=== PATIENT | female | born 1985 | race Caucasian/White ===

== ENCOUNTER 2020-09-13 13:09 | Outpatient (REF) | payer MEDICAID, SELFPAY | END 2020-09-13 13:10 | disposition home or self-care (01) | LOC: HO.LAB 13:09 | PROVIDERS: Visit Provider Internal Medicine | DX: Z20.828 Contact with and (suspected) exposure to other viral communicable diseases (principal) | CPT/HCPCS: C9803; U0003 ==

== ENCOUNTER 2020-12-26 09:13 | Outpatient (REF) | payer MEDICAID, SELFPAY | END 2020-12-26 09:14 | disposition home or self-care (01) | LOC: HO.LAB 09:13 | PROVIDERS: Visit Provider Internal Medicine | DX: Z20.822 Contact with and (suspected) exposure to COVID-19 (principal) | CPT/HCPCS: 36415; C9803; U0003; U0005 ==

== ENCOUNTER 2021-01-24 08:28 | Outpatient (REF) | payer MEDICAID, SELFPAY ==
[2021-01-24 13:31] LABS: SARS COV2 PCR INHOUSE NEGATIVE (Negative)
== END 2021-01-24 08:29 | disposition home or self-care (01) ==
LOC: HO.LAB 08:28
PROVIDERS: Visit Provider Internal Medicine
DX: Z20.822 Contact with and (suspected) exposure to COVID-19 (principal)
CPT/HCPCS: C9803; U0003

== ENCOUNTER 2021-06-13 07:39 | Emergency (ER) | payer MEDICAID, SELFPAY ==
--- NOTE | ~2021-06-13 | US_ITS ---
EXAMINATION: ULTRASOUND EXTREMITY NONVASCULAR. CLINICAL INFORMATION: Question Wilkins's cyst. COMPARISON: None TECHNIQUE: Limited imaging through the right parieto-occipital fossa was performed. FINDINGS: There is no evidence of Wilkins's cyst or soft tissue mass or aneurysm. There is nonspecific minimal fluid along the medial aspect of the popliteal fossa. US/US extremity nonvascular IMPRESSION: There is no Wilkins's cyst seen. There is minimal fluid in the medial aspect of the upper fossa.
--- NOTE | ~2021-06-13 | XR_ITS ---
EXAMINATION: XR KNEE, RIGHT CLINICAL INFORMATION: Right posterior knee pain after exercising. COMPARISON: None TECHNIQUE: Four views of the right knee. FINDINGS: Possible mild soft tissue fullness posterior to the right knee. No significant tricompartmental degenerative joint changes are seen. No acute fracture dislocation. The soft tissues are unremarkable. XR/XR knee RT 4V IMPRESSION: Soft tissue swelling posteriorly. A popliteal cyst cannot be excluded. Targeted soft tissue ultrasound could be performed.
[2021-06-13 07:57] VITALS: BP 102/64; PULSE 78; RESP 18; TEMP 37; O2SAT 98
[2021-06-13 08:03] VITALS: BP 102/64; BP 118/64; PULSE 78; PULSE 96; RESP 18; TEMP 37; O2SAT 95; O2SAT 98; BMI 27.4
[2021-06-13] MEDS: predniSONE 20 MG TABLET 40 MG PO (09:25)
--- NOTE | 2021-06-13 09:25 | ED_ITS ---
HPI - Extremity Injury (Lower) General Chief Complaint: Extremity Injury, Lower Stated Complaint: leg pain Time Seen by Provider: 06/13/21 08:12 Source: patient Mode of arrival: ambulatory Limitations: no limitations History of Present Illness complaint: thigh injury and knee injury Onset (ago): day(s) (Two days ago) Injury: Right: thigh and knee Type of Injury: hyperextension Place: home Severity: moderate Exacerbating factors: weight bearing, movement and palpation Context: other (Exercising pulling on her leg up to her chest) Associated symptoms: snap/pop sensation and able to partially bear weight Other symptoms: none Treatments prior to arrival: other (Has tried Motrin and Tylenol no symptomatic relief) Related Data Previous Rx's Medication Instructions Recorded acetaminophen 500 mg tablet 1,000 mg PO QID PRN #14 tab 06/13/21 (Tylenol Extra Strength) cyclobenzaprine 10 mg tablet 10 mg PO Q8H #10 tab 06/13/21 ibuprofen 800 mg tablet 800 mg PO Q8H PRN #14 tab 06/13/21 oxycodone-acetaminophen 5 mg-325 1 tab PO Q6H PRN #10 tab 06/13/21 mg tablet (Percocet) prednisone 20 mg tablet 40 mg PO DAILY 5 Days #10 tab 06/13/21 Allergies Allergy/AdvReac Type Severity Reaction Status Date / Time Penicillins [PCN] Allergy Severe ANAPHYLAXIS Unverified 07/07/20 19:29 Review of Systems Review of Systems: Constitutional : No changes in activity, No lethargy, No recent prior head injury, No agitation, No increased fussiness ENT/Mouth : No Ear Pain, No Nasal discharge/drainage Eyes: No Eye Pain, No Swelling, No Redness, No Foreign Body, No Vision Changes Cardiovascular : No Chest Pain, No SOB Respiratory : No Cough Gastrointestinal : No Nausea, No Vomiting, No abdominal Pain Genitourinary : No Dysuria, No Urinary Frequency, No Urinary Incontinence, No Urgency, No Flank Pain Musculoskeletal : + joint pain, No neck stiffness, No back pain/injury Skin : No lacerations Neuro : No unsteady gait, No Paresthesias, No Loss of Consciousness, No altered mental status, No Headache Yes all other systems are reviewed and are negative [facility] Past Medical History Attestation statement: The following information was validated with the patient. Medical History Asthma Surgical History H/O tubal ligation Social History Social History Alcohol intake: never Patient Tobacco Use Status: Never used Tobacco Use of substances other than those prescribed or required for medical reasons: No Advance Directives: No Advance Directives Information Provided: No Patient : No Physical Exam Vital Signs: Vital Signs: Last Vital Signs Temp 98.2 F 06/13/21 10:48 Pulse 80 06/13/21 10:48 Resp 18 06/13/21 10:48 BP 103/55 L 06/13/21 10:48 Pulse Ox 100 06/13/21 10:48 Body Mass Index 27.4 vital signs have been reviewed as normal and appeared to be correct. Blood pressure normal. Heart rate normal. Respiration rate normal. Temperature normal. Oxygen saturation normal. Appearance: Alert. Oriented X3. No acute distress. Head: Normal external exam. Normocephalic. Atraumatic. No Jacques signs noted. No raccoon eyes noted Eyes: PERRLA. EOMI. Conjunctiva and sclera normal. Eyelids normal. ENT: EAC normal. TM's Normal. Pharynx normal. Uvula midline. Moist mucous membranes. No trismus noted. No drooling noted. No muffled voice noted. Neck: Normal inspection. Neck supple. FROM. No adenopathy. Thyroid Normal. No meningeal signs. No neck mass noted. CVS: Normal heart rate and rhythm. Heart sound normal. Pulses normal throughout. No murmurs/rales/gallops. Respiratory: No respiratory distress. Painless inspiration. Breath sounds normal. No wheezes/rales/rhonchi noted. Chest nontender. No accessory muscle usage noted or decreased air movement noted. Abdomen: Soft and nontender. Bowel sounds normal in all 4 quadrants. No distention noted. No organomegaly noted. No visible injury noted. Back: No CVA tenderness. Full range of motion noted. No rashes/lesion/induration/fluctuance or signs of infection noted. Skin: Skin warm and dry. Normal skin color. Normal skin turgor. No rashes/lesions/lacerations noted. Extremities: Patient with tenderness palpation to right posterior knee/distal thigh at the posterior aspect. Patient has full range of motion of the right knee no ligamentous laxity is noted. No obvious deformities noted. No calf tenderness is noted. No lower extremity edema. Extremities exhibit normal range of motion. Extremities nontender. Neuro: Oriented X 3. No motor deficit. No sensory deficit. Reflexes normal. Normal steady gait. No focal neuro deficits noted. Vascular: + radial pulses/+ 2 distal pedal pulses/+2 dorsalis pedis b/l. Normal cap refill. No cyanosis noted to upper extremity nails and lower extremity toes nails. Course Course Course Narrative: 35-year-old female presenting to the ED with complaints of right posterior knee/lower thigh pain. On exam patient has tenderness palpation to right posterior knee/distal thigh. No lower extremity edema or calf tenderness is noted. Not consistent with DVT. X-ray obtained and negative for any acute processes. Ultrasound obtained and revealed fluid in the posterior knee otherwise no other acute processes. Will DC home with symptomatic treatment along with instructions to return if any new or worsening symptoms to follow up with primary care provider. Patient understands agrees with this plan. MDM - Extremity Injury (Lower) Medical Records Attestation: I reviewed the patient's medical records. Imaging Data Right knee x-ray: Attestation: I personally reviewed and interpreted this imaging study as follows: Radiologist's impression: FINDINGS: Possible mild soft tissue fullness posterior to the right knee. No significant tricompartmental degenerative joint changes are seen. No acute fracture dislocation. The soft tissues are unremarkable. XR/XR knee RT 4V IMPRESSION: Soft tissue swelling posteriorly. A popliteal cyst cannot be excluded. Targeted soft tissue ultrasound could be performed. Soft tissue nonvascular extremity ultrasound: Attestation: I personally reviewed and interpreted this imaging study as follows: Radiologist's impression: FINDINGS: There is no evidence of Wilkins's cyst or soft tissue mass or aneurysm. There is nonspecific minimal fluid along the medial aspect of the popliteal fossa. ? US/US extremity nonvascular IMPRESSION: There is no Wilkins's cyst seen. There is minimal fluid in the medial aspect of the upper fossa.? Discharge Plan Discharge Clinical Impression: Muscle strain of right knee, Muscle strain of right thigh Patient Disposition: Home, Self-Care Instructions: Muscle Strain (ED) Prescriptions: New ibuprofen 800 mg tablet 800 mg PO Q8H PRN (Reason: pain) Qty: 14 RF: 0 prednisone 20 mg tablet 40 mg PO DAILY 5 Days Qty: 10 RF: 0 acetaminophen [Tylenol Extra Strength] 500 mg tablet 1,000 mg PO QID PRN (Reason: fever or pain) Qty: 14 RF: 0 oxycodone-acetaminophen [Percocet] 5-325 mg tablet 1 tab PO Q6H PRN (Reason: pain) Qty: 10 RF: 0 cyclobenzaprine 10 mg tablet 10 mg PO Q8H Qty: 10 RF: 0 Referrals: [facility] [Primary Care Provider] - 2 days Print Language: French
[2021-06-13] MEDS: Cyclobenzaprine HCl 10 MG TABLET PO (09:26)
[2021-06-13] MEDS: Ibuprofen 600 MG TABLET PO (09:26)
[2021-06-13 10:48] VITALS: BP 103/55; PULSE 80; RESP 18; TEMP 36.8; O2SAT 100
== END 2021-06-13 11:26 | disposition home or self-care (01) ==
PROVIDERS: Emergency Provider Emergency Medicine
DX: S86.111A Strain of other muscle(s) and tendon(s) of posterior muscle group at lower leg level, right leg, initial encounter (principal); S76.311A Strain of muscle, fascia and tendon of the posterior muscle group at thigh level, right thigh, initial encounter; X50.1XXA Overexertion from prolonged static or awkward postures, initial encounter; M79.604 Pain in right leg; Y93.B9 Activity, other involving muscle strengthening exercises; Y92.9 Unspecified place or not applicable; Y99.9 Unspecified external cause status
CPT/HCPCS: 73564; 76882; 99284

== ENCOUNTER 2021-08-07 08:11 | Emergency (ER) | payer MEDICAID, SELFPAY ==
--- NOTE | ~2021-08-07 | XR_ITS ---
EXAMINATION: CR X-RAY LEFT FOOT AND ANKLE CLINICAL INFORMATION: Left foot and ankle pain status post trauma/fall. COMPARISON: None TECHNIQUE: 3 views each of the left foot and ankle were obtained. FINDINGS: The ankle joint and mortise are intact. There is no acute fracture or dislocation. The tarsal bones are normally aligned. The metatarsals are intact. Small to moderate calcifications are seen along the medial margin of the first metatarsophalangeal joint. The joint space is unremarkable with normal alignment. The phalanges are intact. There is mild soft tissue swelling. XR/XR ankle LT min 3V IMPRESSION: Mild soft tissue swelling without acute underlying osseous abnormality. Calcifications medially adjacent to the first metatarsophalangeal joint are nonspecific and could be degenerative/chronic posttraumatic in nature. Nonacute gout is a secondary possibility. Correlate with patient history.
--- NOTE | ~2021-08-07 | XR_ITS ---
EXAMINATION: CR X-RAY LEFT FOOT AND ANKLE CLINICAL INFORMATION: Left foot and ankle pain status post trauma/fall. COMPARISON: None TECHNIQUE: 3 views each of the left foot and ankle were obtained. FINDINGS: The ankle joint and mortise are intact. There is no acute fracture or dislocation. The tarsal bones are normally aligned. The metatarsals are intact. Small to moderate calcifications are seen along the medial margin of the first metatarsophalangeal joint. The joint space is unremarkable with normal alignment. The phalanges are intact. There is mild soft tissue swelling. XR/XR foot LT min 3V IMPRESSION: Mild soft tissue swelling without acute underlying osseous abnormality. Calcifications medially adjacent to the first metatarsophalangeal joint are nonspecific and could be degenerative/chronic posttraumatic in nature. Nonacute gout is a secondary possibility. Correlate with patient history.
[2021-08-07 08:15] VITALS: BP 106/51; BP 130/70; PULSE 76; PULSE 89; RESP 16; TEMP 36.7; O2SAT 98; O2SAT 99; BMI 25.7
--- NOTE | 2021-08-07 08:48 | ED.LOWEXIN ---
HPI - Extremity Injury (Lower) General Chief Complaint: Extremity Injury, Lower Stated Complaint: L FOOT PAIN/INJURY S/P MISSTEP Time Seen by Provider: 08/07/21 08:22 Source: patient Mode of arrival: ambulatory Limitations: no limitations History of Present Illness HPI Narrative: 35-year-old female presents for left foot pain after 1 week ago. Patient states she was in sandals and walking downstairs, and she slipped and her left great toe bent backwards. Since then she has had worsening pain, states the pain is now 9/10 and she cannot bear weight. Pain is mostly in the joints of her right great toe. Skin is very tender Related Data Previous Rx's Medication Instructions Recorded acetaminophen 500 mg tablet 1,000 mg PO QID PRN #14 tab 06/13/21 (Tylenol Extra Strength) cyclobenzaprine 10 mg tablet 10 mg PO Q8H #10 tab 06/13/21 ibuprofen 800 mg tablet 800 mg PO Q8H PRN #14 tab 06/13/21 oxycodone-acetaminophen 5 mg-325 1 tab PO Q6H PRN #10 tab 06/13/21 mg tablet (Percocet) prednisone 20 mg tablet 40 mg PO DAILY 5 Days #10 tab 06/13/21 prednisone 10 mg tablet 10 mg PO DAILY 12 Days #39 tab 08/07/21 Allergies Allergy/AdvReac Type Severity Reaction Status Date / Time Penicillins [PCN] Allergy Severe ANAPHYLAXIS Unverified 07/07/20 19:29 latex Allergy Anaphylaxis Verified 08/07/21 08:22 Review of Systems Review of Systems: Constitutional : No Weight loss, No Fever, No Chills, No Night Sweats,No Fatigue, No Malaise ENT/Mouth : No Hearing loss, No Ear Pain, No Nasal Congestion, NoSinus Pain, No Hoarseness, No sore throat, No Rhinorrhea, NoSwallowing Difficulty Eyes: No Eye Pain, No Swelling, No Redness, No Foreign Body, NoDischarge, No Vision Changes Cardiovascular : No Chest Pain, No SOB, No Dyspnea on Exertion, NoOrthopnea, No Edema, No Palpitations Respiratory : No Cough, No Sputum, No Wheezing, No Smoke Exposure, No Dyspnea Gastrointestinal : No Nausea, No Vomiting, No Diarrhea, NoConstipation, No abdominal Pain, No Hematochezia, No Melena Musculoskeletal : left foot pain Skin : No Skin Lesions, No rash Neuro : No Weakness, No Numbness, No Paresthesias, No Loss ofConsciousness, No Dizziness, No Headache PMFSH Past Medical History Medical History Asthma Surgical History H/O tubal ligation Social History Social History Alcohol intake: never Patient Tobacco Use Status: Never used Tobacco Advance Directives: No Advance Directives Information Provided: No Patient : No Physical Exam Vital Signs: Vital Signs: Last Vital Signs Temp 98.0 F 08/07/21 08:15 Pulse 76 08/07/21 08:15 Resp 16 08/07/21 08:15 BP 106/51 L 08/07/21 08:15 Pulse Ox 99 08/07/21 08:15 Body Mass Index 25.7 Const: General: cooperative, no acute distress, well developed, alert and awake Nutritional Appearance: well nourished Orientation/consciousness: patient oriented x3 Limitations: no limitations HENMT: Head: Yes normal to inspection, Yes normocephalic and Yes atraumatic Ears: hearing grossly normal bilaterally, external ears normal, TM's normal bilaterally and EAC's normal General nose exam: Normal external nose present Face and sinus: Yes normal facial exam and Yes sinuses nontender Mouth: Normal oral and palatal mucosa present Throat: Yes posterior oropharynx normal Eyes: Conjunctivae: conjunctivae normal Pupils: Equal, round and reactive pupils present EOM: EOMs intact bilaterally Neck: Neck: Yes full ROM, Yes no lymphadenopathy and Yes supple Resp: Effort & Inspection: normal respiratory effort and able to speak in complete sentences Auscultation: clear to auscultation bilaterally, no crackles, no rales, no rhonchi and no wheezes Cardio: Rate: regular rate Rhythm: regular rhythm Heart sounds: S1 normal heart sound present and S2 normal heart sound present Skin: Other: Mildly erythematous and warm over dorsum of left foot Neuro: General: patient oriented x3, tone normal and moves all extremities Cranial nerves: Yes Equal, round and reactive pupils present Extrem: Left lower extremity: full ROM, normal capillary refill and foot Details: normal capillary refill and tenderness Location: of the great toe Location: at the MTP joint and of the mid foot Location: dorsally and distally; No no cyanosis and no edema Psych: Appearance: grossly normal Affect: normal affect Attitude: cooperative Thought process: Normal thought process present Course Course Course Narrative: 35-year-old female presents for left foot pain. On exam, patient has intact left lower extremity pulses, sensation, and motor strength. Patient is very tender over great toe MTP joint. Left foot diffusely swollen, skin extremely tender to palpate. X-ray shows no acute osseous abnormality, question gout MTP joint Will treat for gout Discharge Plan Discharge Clinical Impression: Gout Qualifiers: Gout site: foot Gout etiology: unspecified cause Chronicity: acute Laterality: left Qualified Code(s): M10.9 - Gout, unspecified Patient Disposition: Home, Self-Care Instructions: Gout (ED), R.I.C.E. Treatment (ED) Additional Instructions: Please rest, ice, and elevate your foot. Please take prednisone as prescribed. Please take the prednisone for 12 days. Please take it in the morning. Use the crutch you have at home, and weight bear as you can tolerate. Please return if you have worsening pain, or any other new or concerning symptoms. Prescriptions: New prednisone 10 mg tablet 10 mg PO DAILY 12 Days Qty: 39 RF: 0 No Action ibuprofen 800 mg tablet 800 mg PO Q8H PRN (Reason: pain) Qty: 14 RF: 0 prednisone 20 mg tablet 40 mg PO DAILY 5 Days Qty: 10 RF: 0 acetaminophen [Tylenol Extra Strength] 500 mg tablet 1,000 mg PO QID PRN (Reason: fever or pain) Qty: 14 RF: 0 oxycodone-acetaminophen [Percocet] 5-325 mg tablet 1 tab PO Q6H PRN (Reason: pain) Qty: 10 RF: 0 cyclobenzaprine 10 mg tablet 10 mg PO Q8H Qty: 10 RF: 0 Stand Alone Forms: Work/School Release
[2021-08-07] MEDS: oxyCODONE HCl Immed Release 5 MG TABLET PO (09:15)
== END 2021-08-07 11:44 | disposition home or self-care (01) ==
PROVIDERS: Emergency Provider Student in an Organized Health Care Education/Training Program; PCP Internal Medicine
DX: M10.9 Gout, unspecified (principal); M25.572 Pain in left ankle and joints of left foot; Z79.899 Other long term (current) drug therapy
CPT/HCPCS: 73610; 73630; 99283; 99284

== ENCOUNTER 2021-08-25 13:05 | Outpatient (REF) | payer MEDICAID, SELFPAY | END 2021-08-25 13:06 | disposition home or self-care (01) | LOC: HO.LAB 13:05 | PROVIDERS: Visit Provider Internal Medicine | DX: Z20.822 Contact with and (suspected) exposure to COVID-19 (principal) | CPT/HCPCS: C9803; U0003; U0005 ==

== ENCOUNTER 2021-10-06 08:33 | Emergency (ER) | payer MEDICAID, SELFPAY ==
--- NOTE | ~2021-10-06 | XR_ITS ---
EXAMINATION: XR CHEST CLINICAL INFORMATION: Shortness of breath and cough. Covid infection. COMPARISON: Previous chest x-ray February 2018 TECHNIQUE: Frontal view of the chest was obtained. FINDINGS: No significant abnormality is noted involving the heart, lungs, mediastinum, bony thorax or soft tissues. XR/XR chest 1V IMPRESSION: Unremarkable examination.
[2021-10-06 08:56] VITALS: BP 99/60; PULSE 91; RESP 17; TEMP 37.1; O2SAT 98
[2021-10-06 09:32] LABS: COVID-19 Test Positive (Negative)
[2021-10-06 09:37] LABS: Strep A Nucleic Acid Negative (Negative)
--- NOTE | 2021-10-06 09:53 | ED_ITS ---
HPI - General Adult General Chief complaint: General Medical Stated complaint: Sore throat/headache/fever Time Seen by Provider: 10/06/21 09:11 Source: patient Mode of arrival: ambulatory History of Present Illness HPI narrative: 35-year-old female with a past medical history of asthma presenting to the ED complaining productive cough, mild SOB, chest discomfort when coughing, myalgias, subjective fever, ear pain, sore throat x3 days. R eports sick contacts with strep pharyngitis and URI. Denies recent travel, pedal edema. Is COVID-19 vaccinated Onset (ago): day(s) Related Data Previous Rx's Medication Instructions Recorded acetaminophen 500 mg tablet 1,000 mg PO QID PRN #14 tab 06/13/21 (Tylenol Extra Strength) cyclobenzaprine 10 mg tablet 10 mg PO Q8H #10 tab 06/13/21 ibuprofen 800 mg tablet 800 mg PO Q8H PRN #14 tab 06/13/21 oxycodone-acetaminophen 5 mg-325 1 tab PO Q6H PRN #10 tab 06/13/21 mg tablet (Percocet) prednisone 20 mg tablet 40 mg PO DAILY 5 Days #10 tab 06/13/21 prednisone 10 mg tablet 10 mg PO DAILY 12 Days #39 tab 08/07/21 Allergies Allergy/AdvReac Type Severity Reaction Status Date / Time Penicillins [PCN] Allergy Severe ANAPHYLAXIS Verified 10/06/21 08:58 latex Allergy Anaphylaxis Verified 08/07/21 08:22 Review of Systems Review of Systems: Constitutional:+subj Fever, No Chills ENT/Mouth: + Ear Pain, + Nasal Congestion, No Sinus Pain, No Hoarseness, + sore throat, No Rhinorrhea, No Swallowing Difficulty Cardiovascular: + Chest Pain when coughing, + SOB Respiratory: + Cough, No Sputum, No Wheezing Gastrointestinal: No Nausea, No Vomiting, No Diarrhea, No Constipation, No Abdominal pain Genitourinary: No Dysuria, No Urinary Frequency, No Hematuria, No Urinary Incontinence Musculoskeletal: No joint pain, No Myalgias, No Joint Swelling Skin: No Skin Lesions, No rash Neuro: No Weakness Yes all other systems are reviewed and are negative PMFSH Past Medical History Attestation statement: The following information was validated with the patient. Medical History Asthma Surgical History H/O tubal ligation Social History Social History Alcohol intake: never Patient Tobacco Use Status: Never used Tobacco Advance Directives: No Advance Directives Information Provided: No Patient : No Physical Exam Vital Signs: Vital Signs: Last Vital Signs Temp 98.7 F 10/06/21 08:56 Pulse 91 10/06/21 08:56 Resp 17 10/06/21 08:56 BP 99/60 10/06/21 08:56 Pulse Ox 98 10/06/21 08:56 BMI result Body Mass Index 30.0 Const: General: cooperative, healthy appearing and no acute distress Orientation/consciousness: patient oriented x3 Limitations: no limitations HENMT: Head: Yes normal to inspection Ears: hearing grossly normal bilaterally, external ears normal, TM's normal bilaterally and mastoids normal General nose exam: Normal external nose present Face and sinus: Yes normal facial exam Mouth: Normal oral and palatal mucosa present Throat: Yes posterior oropharynx normal, Yes tonsils normal, Yes uvula midline, No peritonsillar mass and No uvular edema Eyes: General: appearance normal, both eyes and all related structures EOM: EOMs intact bilaterally Neck: Neck: Yes normal visual inspection and Yes no meningeal signs Resp: Effort & Inspection: normal respiratory effort Auscultation: clear to auscultation bilaterally, no rales, no rhonchi and no wheezes Cardio: Rate: regular rate Heart sounds: S1 normal heart sound present and S2 normal heart sound present Skin: Rashes: no rashes Wounds: no wounds Neuro: General: patient oriented x3 and no meningeal signs Gait exam (Neuro): Normal gait present Extrem: General: Yes normal to inspection, Yes no pedal edema and Yes no calf tenderness Course Course Course Narrative: -COVID-19 positive. Rapid strep negative. -1210--XR chest 1V IMPRESSION: Unremarkable examination. ? > results discussed with patient including worrisome signs and symptoms and strict return precautions Medical Decision Making MDM Narrative Medical decision making narrative: 35-year-old female with a past medical hi story of asthma presenting to the ED complaining productive cough, mild SOB, chest discomfort when coughing, myalgias, subjective fever, ear pain, sore throat x3 days. On exam vital signs stable, NAD/nontoxic, lungs CTA, exam nonfocal. Concern for viral syndrome/COVID-19. Exam not consistent with strep pharyngitis at this time. Will obtain rapid strep, COVID-19 testing, CXR Medical Records Medical records reviewed: Yes I reviewed the patient's medical records. Lab Data Lab results reviewed: Yes I reviewed the patient's lab results. Labs: Lab Results 10/06/21 10/06/21 Range/Units 09:16 09:16 COVID-19 ([facility]) Positive A (Negative) COVID-19 Clin Com See Note S. pyogenes GrpA AUDIE Negative (Negative) Discharge Plan Discharge Clinical Impression: COVID-19 Patient Disposition: Home, Self-Care Instructions: COVID-19 (Coronavirus Disease 2019) (ED) Additional Instructions: You have COVID-19. You need to self isolate for 10-14 days. If you develop shortness of breath that is constant worsening, chest pain, fevers unresolved with Tylenol or Motrin please return to the ED CDC Guidelines for home isolation: - Stay away from others - WEAR A MASK if you are sick AND STAY HOME - Cover your mouth and nose with a tissue when you cough or sneeze. Dispose of tissues in a lined trash can and wash your hands immediately with soap and water for at least 20 seconds. If soap and water are not available, clean hands with alcohol-based hand sales enablement lead that contains at least 60% alcohol. - Clean your hands often with soap and water for at least 20 seconds - Avoid touching your eyes, nose and mouth with unwashed hands - Do not share dishes, drinking glasses, cups, eating utensils, towels, or be dding with other people in your home. After using these items, wash them thoroughly with soap and water or put in the development editor. - Clean high-touch surfaces in your isolation area ( sick room and bathroom) every day; let a caregiver clean and disinfect high-touch surfaces in other areas of the home. Clean the area or item with soap and water or another detergent if it is dirty. Then, use a household disinfectant. - Limit contact with pets and animals: If you must care for a pet, wash your hands before and after interacting with them) Prescriptions: No Action ibuprofen 800 mg tablet 800 mg PO Q8H PRN (Reason: pain) Qty: 14 RF: 0 prednisone 20 mg tablet 40 mg PO DAILY 5 Days Qty: 10 RF: 0 acetaminophen [Tylenol Extra Strength] 500 mg tablet 1,000 mg PO QID PRN (Reason: fever or pain) Qty: 14 RF: 0 oxycodone-acetaminophen [Percocet] 5-325 mg tablet 1 tab PO Q6H PRN (Reason: pain) Qty: 10 RF: 0 cyclobenzaprine 10 mg tablet 10 mg PO Q8H Qty: 10 RF: 0 prednisone 10 mg tablet 10 mg PO DAILY 12 Days Qty: 39 RF: 0 Referrals: Sweta Correa MD [Primary Care Provider] - 5 days (As needed. Please call) Stand Alone Forms: Work/School Release
--- NOTE | 2021-10-06 12:12 | PC.NURSE ---
NO DIFF BREATHING, SPEAKING IN FULL SENTENCES, INTERMITTENT DRY COUGH, PT STATES SHE IS FULLY VACCINATED FOR COVID 19.
== END 2021-10-06 12:22 | disposition home or self-care (01) ==
PROVIDERS: Physician Assistant; Emergency Provider Emergency Medicine; PCP Internal Medicine
DX: U07.1 COVID-19 (principal); J02.9 Acute pharyngitis, unspecified; R50.9 Fever, unspecified; R51.9 Headache, unspecified; Z79.899 Other long term (current) drug therapy
CPT/HCPCS: 36415; 71045; 87635; 87651; 99283

== ENCOUNTER 2022-01-21 08:51 | Emergency (ER) | payer MEDICAID, SELFPAY ==
--- NOTE | ~2022-01-21 | XR_ITS ---
EXAMINATION: XR CHEST CLINICAL INFORMATION: Chest pain COMPARISON: Chest x-ray 10/06/2021 TECHNIQUE: 2 views of the chest were obtained. FINDINGS: Cardiac silhouette is normal in size. The lungs are well aerated. There is no lobar consolidation. No pleural effusion or pneumothorax. No acute osseous abnormality. XR/XR chest 2V IMPRESSION: No acute pulmonary pathology.
[2022-01-21 08:54] VITALS: PULSE 68; O2SAT 98
[2022-01-21 09:02] VITALS: BP 100/60; PULSE 82; RESP 18; TEMP 36.3; O2SAT 98; BMI 30.5
[2022-01-21 09:33] LABS: IDNOW Serial# 08D9AD1C; Strep A Nucleic Acid Negative (Negative)
--- NOTE | 2022-01-21 09:34 | ECG_ITS ---
Test Reason : CP Blood Pressure : / mmHG Vent. Rate : 063 BPM Atrial Rate : 063 BPM P-R Int : 126 ms QRS Dur : 082 ms QT Int : 404 ms P-R-T Axes : 005 068 041 degrees QTc Int : 413 ms Normal sinus rhythm Normal ECG No previous ECGs available Referred By: Makeda Goldberg Electronically Signed By:BISHNU TENORIO MD
--- NOTE | 2022-01-21 09:42 | ED_ITS ---
HPI - General Adult General Chief complaint: General Medical Stated complaint: dizzy Time Seen by Provider: 01/21/22 09:28 Source: patient and EMS Mode of arrival: EMS Limitations: no limitations History of Present Illness HPI narrative: 36-year-old female with history of asthma here with multiple complaints. Kate ent reports Saturday she noticed that she had a right-sided sore throat and feels like there may be a lump on the right side of her throat. She reports some nasal drainage associated with this. No fever, cough, headache. No sick contact or recent travel. Patient reports last night while at rest she started to have some chest soreness which is constant and worsened with movement, deep breathing, palpation with no associated shortness of breath, nausea, diaphoresis. No leg pain or swelling. No OCP use. No family history of blood clots. This morning when she woke up and started to walk around she started to feel lightheaded. No dizziness with rest. No associated headache, vision alize nges, weakness or paresthesias of the extremities. Related Data Previous Rx's Medication Instructions Recorded acetaminophen 500 mg tablet 1,000 mg PO QID PRN #14 tab 06/13/21 (Tylenol Extra Strength) cyclobenzaprine 10 mg tablet 10 mg PO Q8H #10 tab 06/13/21 ibuprofen 800 mg tablet 800 mg PO Q8H PRN #14 tab 06/13/21 oxycodone-acetaminophen 5 mg-325 1 tab PO Q6H PRN #10 tab 06/13/21 mg tablet (Percocet) prednisone 20 mg tablet 40 mg PO DAILY 5 Days #10 tab 06/13/21 prednisone 10 mg tablet 10 mg PO DAILY 12 Days #39 tab 08/07/21 Allergies Allergy/AdvReac Type Severity Reaction Status Date / Time Penicillins [PCN] Allergy Severe ANAPHYLAXIS Verified 10/06/21 08:58 latex Allergy Anaphylaxis Verified 08/07/21 08:22 Review of Systems Review of Systems: Yes all other systems are reviewed and are negative Constitutional: Constitutional: Reports no additional constitutional complaints, Denies body ache(s), Denies chills, Denies fever(s), Denies headache(s) and Denies weakness Eyes: Eyes: Reports no additional eye complaints and Denies change in vision ENT: Reports system reviewed and no additional complaints, except as documented, Reports dizziness, Denies headache(s), Denies nasal congestion, Reports nasal discharge, Denies neck pain and Reports sore throat Cardiovascular: Cardiovascular: Reports no additional cardiovascular complaints, Reports chest pain, Denies leg edema and Denies dyspnea Respiratory: Respiratory: Reports no additional respiratory complaints, Denies cough and Denies dyspnea Gastrointestinal: Gastrointestinal: Reports no additional gastrointestinal complaints, Denies abdominal pain, Denies diarrhea, Denies nausea and Denies vomiting Genitourinary: Genitourinary: Reports no additional female genitourinary comp laints and Denies urinary incontinence Musculoskeletal: Musculoskeletal: Reports no additional musculoskeletal complaints, Denies back pain, Denies arthralgias, Denies joint swelling, Denies neck pain, Denies numbness and Denies tingling Integumentary/Breasts: Skin/Breast: Reports system reviewed and no additional complaints, except as docu and Denies rash Neurologic: Reports system reviewed and no additional complaints, except as documented, Reports dizziness, Denies headache(s), Denies numbness, Denies tingling and Denies weakness [facility] Past Medical History Attestation statement: The following information was validated with the patient. Source: old records reviewed and nursing notes reviewed Medical History Asthma Surgical History H/O tubal ligation Social History Social History Alcohol intake: never Patient Tobacco Use Status: Never used Tobacco Advance Directives: No Advance Directives Information Provided: No Patient : No Physical Exam ED Vital Signs: Vital Signs - 24 hr 01/21/22 09:02 Temperature 97.3 F Pulse Rate 82 Respiratory Rate 18 Blood Pressure 100/60 Pulse Oximetry 98 BMI result Body Mass Index 30.5 Const General: cooperative, healthy appearing, comfortable and no acute distress Orientation/consciousness: patient oriented x3 Limitations: no limitations HENMT Head: Yes normal to inspection Ears: hearing grossly normal bilaterally and TM's normal bilaterally General nose exam: Normal external nose present Face and sinus: Yes normal facial exam Mouth: Normal oral and palatal mucosa present Teeth and gingiva: dentition normal Throat: Yes posterior oropharynx normal, Yes tonsils normal and Yes uvula midline Eyes General: appearance normal, both eyes and all related structures Pupils: Equal, round and reactive pupils present Neck Neck: Yes normal visual inspection, Yes full ROM and Yes no meningeal signs Lymphatic: lymphadenopathy right anterior cervical single and small Chest Chest palpation & inspection: normal inspection of the chest and tenderness (Central chest tender to palpation) Resp Effort & Inspection: normal respiratory effort Auscultation: clear to auscultation bilaterally Cardio Rate: regular rate Rhythm: regular rhythm Peripheral pulses: Peripheral pulses 2+ throughout GI Inspection: Yes normal to inspection Palpation (GI): Soft to palpation and nontender General: Yes no CVA tenderness Back/Spine/Pelvis Back: no CVA tenderness Thoracic/Lumbar Spine: thoracic and lumbar spine normal to inspection Skin General skin exam: no rashes or lesions noted Neuro General: patient oriented x3, moves all extremities and no meningeal signs Cranial nerves: Yes CN's II-XII intact bilaterally, Yes Equal, round and reactive pupils present, Yes Bilaterally intact EOM present, Yes Nystagmus not present, Yes Normal facial strength present and Yes Midline tongue present Cognition (Neuro): normal cognition Gait exam (Neuro): Normal gait present Motor exam (neuro): 5/5 motor strength present throughout Sensory Exam: Normal double simultaneous stimulation for sensation Coordination: [id number] test normal, [id number] test normal and tandem gait normal Extrem General: Yes normal to inspection, Yes no pedal edema and Yes no calf tenderness Course Course Course Narrative: 36-year-old female here with multiple complaints which include sore throat, right-sided lymphadenopathy, nasal congestion for several days, chest discomfort since last evening which is worsened with breathing, palpation and movement with no other associated symptoms, and lightheadedness today with waking with walking. On exam the patient has a single lymph node that is mobile and tender. Throat is not consistent with strep pharyngitis. Exam is normal. She has chest discomfort with palpation. Normal neuro exam. -rapid strep from triage negative. Will send flu and COVID testing. Will check labs, EKG and chest x-ray. Chest pain is atypical for ACS. 1030-testing for flu, COVID and strep were all negative. Likely viral syndrome. Patient has a single lymph node that is tender and mobile. Likely secondary to viral syndrome. Recommend follow-up with primary care doctor in 1 week if having continued swelling. Blood work, chest x-ray and EKG are all unremarkable. Less likely ACS. Perc score 0. Recommended follow-up with primary care doctor in 1 week for persistent symptoms. Reviewed worrisome signs and symptoms of when to return to the emergency department. Comfortable discharge home. Medical Decision Making MDM Narrative Medical decision making narrative: PERC 0, heart score 0 Medical Records Medical records reviewed: Yes I reviewed the patient's medical records. Lab Data Lab results reviewed: Yes I reviewed the patient's lab results. Result diagrams: 01/21/22 09:45 01/21/22 09:45 Labs: Lab Results 01/21/22 01/21/22 01/21/22 Range/Units 09:11 09:41 09:41 WBC (4.8-10.8) X10*3/uL RBC (4.20-5.50) X10*6/uL Hgb (12.0-16.0) g/dl Hct (37.0-47.0) % MCV (80.0-98.0) fL MCH (27.0-33.0) pg MCHC (31.0-35.0) g/dl RDW (11.0-16.0) % Plt Count (160-400) X10*3/uL MPV (9.4-12.3) fL Immature Gran % (Auto) (0.0-0.4) % Neut % (Auto) (45-73) % Lymph % (Auto) (20-40) % [place] % (Auto) (2-11) % Eos % (Auto) (0-4) % Baso % (Auto) (0-2) % Lymph # (Auto) (1.2-4.9) X10*3/uL [place] # (Auto) (0.1-1.2) X10*3/uL Eos # (Auto) (0.0-0.4) X10*3/uL Baso # (Auto) (0.0-0.2) X10*3/uL Abs Immat Gran (auto) (0.00-0.03) X10*3/uL Absolute Neuts (auto) (2.0-8.3) x10*3/uL Absolute Nucleated RBC (0.0-0.012) X10*3/uL Nucleated RBC % (auto) (0.0-0.2) /100WBC D-Dimer High Sensitivty NG/ML Sodium (135-145) mmol/L Potassium (3.3-5.1) mmol/L Chloride (96-108) mmol/L Carbon Dioxide (22-29) mmol/L Anion Gap (12-20) BUN (9-16) mg/dL Creatinine (0.5-1.4) mg/dL Estim Creat Clear Calc Estimated GFR Random Glucose (60-115) mg/dL Calcium (8.4-10.2) mg/dL Magnesium (1.6-2.6) mg/dL Total Bilirubin (0.0-1.0) mg/dL Direct Bilirubin (0.0-0.5) mg/dL AST (5-31) U/L ALT (0-31) U/L Alkaline Phosphatase (39-117) U/L Troponin I High Sens (<3.5-17.0) ng/L Total Protein (6.5-8.0) g/dL Albumin (3.5-5.0) g/dL COVID-19 ([facility]) Negative (Negative) COVID-19 Clin Com See Note Influenza Type A (AUDIE) Negative (Negative) Influenza Type B (AUDIE) Negative (Negative) Influenza A & B Note See Note S. pyogenes GrpA AUDIE Negative (Negative) 01/21/22 01/21/22 01/21/22 Range/Units 09:45 09:45 09:45 WBC 5.4 (4.8-10.8) X10*3/uL RBC 4.78 (4.20-5.50) X10*6/uL Hgb 13.1 (12.0-16.0) g/dl Hct 42.2 (37.0-47.0) % MCV 88.3 (80.0-98.0) fL MCH 27.4 (27.0-33.0) pg MCHC 31.0 (31.0-35.0) g/dl RDW 13.2 (11.0-16.0) % Plt Count 289 (160-400) X10*3/uL MPV 8.9 L (9.4-12.3) fL Immature Gran % (Auto) 0.2 (0.0-0.4) % Neut % (Auto) 67.2 (45-73) % Lymph % (Auto) 22.5 (20-40) % [place] % (Auto) 5.9 (2-11) % Eos % (Auto) 3.3 (0-4) % Baso % (Auto) 0.9 (0-2) % Lymph # (Auto) 1.2 (1.2-4.9) X10*3/uL [place] # (Auto) 0.3 (0.1-1.2) X10*3/uL Eos # (Auto) 0.2 (0.0-0.4) X10*3/uL Baso # (Auto) 0.1 (0.0-0.2) X10*3/uL Abs Immat Gran (auto) 0.01 (0.00-0.03) X10*3/uL Absolute Neuts (auto) 3.6 (2.0-8.3) x10*3/uL Absolute Nucleated RBC 0.000 (0.0-0.012) X10*3/uL Nucleated RBC % (auto) 0.0 (0.0-0.2) /100WBC D-Dimer High Sensitivty < 150 NG/ML Sodium 143 (135-145) mmol/L Potassium 4.3 (3.3-5.1) mmol/L Chloride 108 (96-108) mmol/L Carbon Dioxide 27 (22-29) mmol/L Anion Gap 12 (12-20) BUN 12 (9-16) mg/dL Creatinine 0.81 (0.5-1.4) mg/dL Estim Creat Clear Calc 96.7 Estimated GFR > 60 Random Glucose 88 (60-115) mg/dL Calcium 9.6 (8.4-10.2) mg/dL Magnesium 2.2 (1.6-2.6) mg/dL Total Bilirubin 0.5 (0.0-1.0) mg/dL Direct Bilirubin 0.2 (0.0-0.5) mg/dL AST 18 (5-31) U/L ALT 19 (0-31) U/L Alkaline Phosphatase 67 (39-117) U/L Troponin I High Sens (<3.5-17.0) ng/L Total Protein 7.2 (6.5-8.0) g/dL Albumin 4.1 (3.5-5.0) g/dL COVID-19 ([facility]) (Negative) COVID-19 Clin Com Influenza Type A ([facility]) (Negative) Influenza Type B ([facility]IE) (Negative) Influenza A & B Note S. pyogenes GrpA AUDIE (Negative) 01/21/22 Range/Units 09:45 WBC (4.8-10.8) X10*3/uL RBC (4.20-5.50) X10*6/uL Hgb (12.0-16.0) g/dl Hct (37.0-47.0) % MCV (80.0-98.0) fL MCH (27.0-33.0) pg MCHC (31.0-35.0) g/dl RDW (11.0-16.0) % Plt Count (160-400) X10*3/uL MPV (9.4-12.3) fL Immature Gran % (Auto) (0.0-0.4) % Neut % (Auto) (45-73) % Lymph % (Auto) (20-40) % [place] % (Auto) (2-11) % Eos % (Auto) (0-4) % Baso % (Auto) (0-2) % Lymph # (Auto) (1.2-4.9) X10*3/uL [place] # (Auto) (0.1-1.2) X10*3/uL Eos # (Auto) (0.0-0.4) X10*3/uL Baso # (Auto) (0.0-0.2) X10*3/uL Abs Immat Gran (auto) (0.00-0.03) X10*3/uL Absolute Neuts (auto) (2.0-8.3) x10*3/uL Absolute Nucleated RBC (0.0-0.012) X10*3/uL Nucleated RBC % (auto) (0.0-0.2) /100WBC D-Dimer High Sensitivty NG/ML Sodium (135-145) mmol/L Potassium (3.3-5.1) mmol/L Chloride (96-108) mmol/L Carbon Dioxide (22-29) mmol/L Anion Gap (12-20) BUN (9-16) mg/dL Creatinine (0.5-1.4) mg/dL Estim Creat Clear Calc Estimated GFR Random Glucose (60-115) mg/dL Calcium (8.4-10.2) mg/dL Magnesium (1.6-2.6) mg/dL Total Bilirubin (0.0-1.0) mg/dL Direct Bilirubin (0.0-0.5) mg/dL AST (5-31) U/L ALT (0-31) U/L Alkaline Phosphatase (39-117) U/L Troponin I High Sens < 3.5 (<3.5-17.0) ng/L Total Protein (6.5-8.0) g/dL Albumin (3.5-5.0) g/dL COVID-19 ([facility]) (Negative) COVID-19 Clin Com Influenza Type A ([facility]) (Negative) Influenza Type B ([facility]) (Negative) Influenza A & B Note S. pyogenes GrpA AUDIE (Negative) Imaging Data Chest x-ray: Attestation: I personally reviewed and interpreted this imaging study as follows: Radiologist's impression: [address] [address] XRay Report Signed Patient: Michelle Andino MR#: [id number] : 1985 Acct:[id number] Age/Sex: 36 / F ADM Date: 01/21/22 Loc: .ED Attending Dr: Ordering Physician: Makeda Goldberg NP Date of Service: 01/21/22 Procedure(s): XR chest 2V Accession Number(s): [id number] cc: Makeda Goldberg NP~ EXAMINATION: XR CHEST CLINICAL INFORMATION: Chest pain COMPARISON: Chest x-ray 10/06/2021 TECHNIQUE: 2 views of the chest were obtained. FINDINGS: Cardiac silhouette is normal in size. The lungs are well aerated. There is no lobar consolidation. No pleural effusion or pneumothorax. No acute osseous abnormality. XR/XR chest 2V IMPRESSION: No acute pulmonary pathology. ECG Data Attestation: I personally reviewed and interpreted this ECG as follows: Interpretation: Normal sinus rhythm with a rate of 63, normal NV, normal QRS, normal QT Discharge Plan Discharge Clinical Impression: Atypical chest pain, Acute viral syndrome, Dizziness Patient Disposition: Home, Self-Care Instructions: Viral Syndrome (ED), Dizziness (ED), Chest Wall Pain (ED) Additional Instructions: Testing for influenza, covid and strep throat are negative. You do have a swollen lymph node which is likely from a viral infection and will resolve with time. If continued swelling after 1 week follow-up with your PCP. Your blood work, chest x-ray and EKG are all normal. Take motrin or tylenol for pain as needed Follow-up with your PCP for continued symptoms. Prescriptions: No Action ibuprofen 800 mg tablet 800 mg PO Q8H PRN (Reason: pain) Qty: 14 0RF prednisone 20 mg tablet 40 mg PO DAILY 5 Days Qty: 10 0RF acetaminophen [Tylenol Extra Strength] 500 mg tablet 1,000 mg PO QID PRN (Reason: fever or pain) Qty: 14 0RF oxycodone-acetaminophen [Percocet] 5-325 mg tablet 1 tab PO Q6H PRN (Reason: pain) Qty: 10 0RF cyclobenzaprine 10 mg tablet 10 mg PO Q8H Qty: 10 0RF prednisone 10 mg tablet 10 mg PO DAILY 12 Days Qty: 39 0RF Rx Instructions: Take 6 tabs for the 1st 3 days, then take 4 tabs for the next 3 days, then take 2 tabs for the next 3 days, then take 1 tab for the last 3 days. Referrals: Sweta Correa MD [Primary Care Provider] - 1 week (for persistent lymph node swelling or chest pain) Stand Alone Forms: Work/School Release Interventions: ED Discharge Assessment Last Done: 01/21/22 10:53 Discharge Date/Time: 01/21/22 10:54
[2022-01-21 09:50] LABS: MANUAL DIFF FLAG NO
[2022-01-21 09:56] LABS: Basophils Absolute Auto 0.1 X10*3/uL (0.0-0.2); Basophils Percent Auto 0.9 % (0-2); Eosinophils Absolute Auto 0.2 X10*3/uL (0.0-0.4); Eosinophils Percent Auto 3.3 % (0-4); Hematocrit 42.2 % (37.0-47.0); Hemoglobin 13.1 g/dl (12.0-16.0); Imm Gran Abs Auto 0.01 X10*3/uL (0.00-0.03); Imm Gran Pct Auto 0.2 % (0.0-0.4); Lymphocytes Absolute Auto 1.2 X10*3/uL (1.2-4.9); Lymphocytes Percent Auto 22.5 % (20-40); Mean Corpuscular Hemoglobin 27.4 pg (27.0-33.0); Mean Corpuscular Volume 88.3 fL (80.0-98.0); Mean Platelet Volume 8.9 fL (9.4-12.3); Monocytes Absolute Auto 0.3 X10*3/uL (0.1-1.2); Monocytes Percent Auto 5.9 % (2-11); Neutrophils Absolute Auto 3.6 x10*3/uL (2.0-8.3); Neutrophils Percent Auto 67.2 % (45-73); Platelet Count 289 X10*3/uL (160-400); Red Blood Count 4.78 X10*6/uL (4.20-5.50); Red Cell Distribution Width 13.2 % (11.0-16.0); White Blood Count 5.4 X10*3/uL (4.8-10.8)
[2022-01-21 10:07] LABS: Influenza A Negative (Negative); Influenza B2 Negative (Negative)
[2022-01-21 10:07] LABS: Alanine Aminotransferase 19 U/L (0-31); Albumin Level 4.1 g/dL (3.5-5.0); Alkaline Phosphatase 67 U/L (39-117); Anion Gap 12 (12-20); Aspartate Amino Transferase 18 U/L (5-31); Bilirubin Direct 0.2 mg/dL (0.0-0.5); Bilirubin Total 0.5 mg/dL (0.0-1.0); Blood Urea Nitrogen 12 mg/dL (9-16); Calcium 9.6 mg/dL (8.4-10.2); Carbon Dioxide 27 mmol/L (22-29); Chloride 108 mmol/L (96-108); Creatinine Clr Calc Pharmacy 96.7; Estimated Glomerular Filt Rate > 60; Glucose Random 88 mg/dL (60-115); Magnesium 2.2 mg/dL (1.6-2.6); Potassium 4.3 mmol/L (3.3-5.1); Sodium 143 mmol/L (135-145); Total Protein 7.2 g/dL (6.5-8.0)
[2022-01-21 10:13] LABS: Troponin-I High Sensitivity < 3.5 ng/L (<3.5-17.0)
[2022-01-21 10:21] LABS: COVID-19 Test Negative (Negative); IDNOW Serial# 16C4AD1C
[2022-01-21 10:28] LABS: D Dimer High Sensitivity < 150 NG/ML
--- NOTE | 2022-01-21 10:34 | PC.NURSE ---
NO DIAPHORESIS, NO CP, NO CYANOSIS OR DIFF BREATHING WHILE IN ED TODAY. SKIN WPD, MOIST MUCOUS MEMBRANES, NAD.
== END 2022-01-21 10:54 | disposition home or self-care (01) ==
PROVIDERS: Nurse Practitioner Family; Emergency Provider Emergency Medicine; PCP Internal Medicine
DX: R07.89 Other chest pain (principal); B34.9 Viral infection, unspecified; R42 Dizziness and giddiness; J02.9 Acute pharyngitis, unspecified; Z20.822 Contact with and (suspected) exposure to COVID-19; Z79.899 Other long term (current) drug therapy
CPT/HCPCS: 36415; 71046; 80048; 80076; 83735; 84484; 85025; 85379; 87502; 87635; 87651; 93005; 99283

== ENCOUNTER 2023-05-17 08:05 | Emergency (ER) | payer MEDICAID, SELFPAY ==
--- NOTE | ~2023-05-17 | XR_ITS ---
EXAMINATION: XR CHEST CLINICAL INFORMATION: Cough. COMPARISON: 01/21/2022 chest radiographs. TECHNIQUE: Frontal view of the chest was obtained. FINDINGS: No significant abnormality is noted involving the heart, lungs, mediastinum, bony thorax or soft tissues. XR/XR chest 1V IMPRESSION: No acute cardiopulmonary process.
[2023-05-17 08:09] VITALS: BP 116/80; PULSE 86; RESP 16; TEMP 36.6; O2SAT 98; BMI 32.3
[2023-05-17 08:59] LABS: Influenza A PCR NEGATIVE (Negative); Influenza B PCR NEGATIVE (Negative); Resp Syncy Virus RNA Qual PCR NEGATIVE (Negative); SARS COV2 PCR INHOUSE NEGATIVE (Negative)
--- NOTE | 2023-05-17 09:10 | ED.GENADULT ---
HPI - General Adult General Chief complaint: Upper Respiratory Symptoms Stated complaint: COVID Symptoms Time Seen by Provider: 05/17/23 09:07 Source: patient Mode of arrival: ambulatory Limitations: no limitations History of Present Illness HPI narrative: Patient is a 37 year old assigned female at with a history of asthma presenting to the emergency department today with a cough. Patient states that for the last 3 days she has had a cough. Patient denies any dizziness, lightheadedness, abdominal pain, nausea, vomiting, fever, chills, blurry vision, double vision, loss of vision, chest pain, difficulty breathing, shortness of breath, back pain, night sweats, pain with urination, increased urinary frequency, increased urinary urgency, blood in her urine or stool, syncope or a near syncopal episode, recent trauma or falls, bowel incontinence, bladder incontinence, bowel retention, bladder retention, or any other complaints at this time. Onset (ago): day(s) (3) Severity: mild Severity scale (1-10): 2 Relieving factors: none Exacerbating factors: none Associated symptoms: cough Treatments prior to arrival: none Related Data Previous Rx's Medication Instructions Recorded acetaminophen 500 mg tablet 1,000 mg PO QID PRN fever or pain 06/13/21 (Tylenol Extra Strength) #14 tabs cyclobenzaprine 10 mg tablet 10 mg PO Q8H Muscle spasm #10 tabs 06/13/21 ibuprofen 800 mg tablet 800 mg PO Q8H PRN pain #14 tabs 06/13/21 oxycodone-acetaminophen 5 mg-325 1 tab PO Q6H PRN pain #10 tabs 06/13/21 mg tablet (Percocet) prednisone 20 mg tablet 40 mg PO DAILY rash 5 days #10 tabs 06/13/21 prednisone 10 mg tablet 10 mg PO DAILY 12 days #39 tabs 08/07/21 benzonatate 100 mg capsule 100 mg PO BID PRN cough 7 days #14 05/17/23 caps Allergies Allergy/AdvReac Type Severity Reaction Status Date / Time Penicillins [PCN] Allergy Severe ANAPHYLAXIS Verified 10/06/21 08:58 latex Allergy Anaphylaxis Verified 08/07/21 08:22 Review of Systems Constitutional: Constitutional: Reports no additional constitutional complaints, Denies chills, Denies fever(s) and Denies night sweats Eyes: Eyes: Reports no additional eye complaints, Denies blurry vision, Denies change in vision, Denies diplopia, Denies eye discharge, Denies loss of vision and Denies eye pain ENT: Denies dizziness Cardiovascular: Cardiovascular: Reports no additional cardiovascular complaints, Denies chest pain, Denies lightheadedness, Denies Loss of Consciousness and Denies dyspnea Respiratory: Respiratory: Reports no additional respiratory complaints, Reports cough and Denies dyspnea Gastrointestinal: Gastrointestinal: Reports no additional gastrointestinal complaints, Denies abdominal pain, Denies melena, Denies hematochezia, Denies change in bowel habits and Denies change in stool character Genitourinary: Genitourinary: Denies hematuria, Denies urinary frequency, Denies dysuria, Denies urinary incontinence, Denies urinary hesitancy and Denies urinary urgency Musculoskeletal: Musculoskeletal: Reports no additional musculoskeletal complaints, Denies numbness and Denies tingling Neurologic: Denies dizziness, Denies loss of vision, Denies numbness and Denies tingling Psychiatric: Psychiatric: Reports no additional psychiatric complaints Endocrine: Endocrine: Reports no additional endocrine complaints Hematologic/Lymphatic: Hematologic/Lymphatic: Reports no additional hematologic/lymphatic complaints Allergic/Immunologic: Allergic/Immunologic: Reports no additional allergic/immunologic complaints PMFSH Past Medical History Attestation statement: The following information was validated with the patient. Source: old records reviewed and nursing notes reviewed Medical History Asthma COVID-19 Surgical History H/O tubal ligation Social History Social History Alcohol intake: never Patient Tobacco Use Status: Never used Tobacco Advance Directives: No Advance Directives Information Provided: No Physical Exam ED Vital Signs: Vital Signs - 24 hr 05/17/23 08:09 Temperature 97.8 F Pulse Rate 86 Respiratory Rate 16 Blood Pressure 116/80 Pulse Oximetry 98 Oxygen Delivery Method Room Air BMI result Body Mass Index 32.3 Const General: cooperative, no acute distress, alert and awake Nutritional Appearance: well nourished Orientation/consciousness: patient oriented x3 Limitations: no limitations HENMT Head: Yes normal to inspection and Yes atraumatic Ears: hearing grossly normal bilaterally and external ears normal General nose exam: Normal external nose present, no nasal discharge noted and no epistaxis Face and sinus: Yes normal facial exam, No abrasion and No laceration Mouth: Normal oral and palatal mucosa present, no drooling and no muffled voice Eyes General: appearance normal, both eyes and all related structures Periorbital: periorbital findings normal Eyelids: Yes eyelids normal Conjunctivae: conjunctivae normal Pupils: Equal, round and reactive pupils present EOM: EOMs intact bilaterally Neck Neck: Yes normal visual inspection, Yes full ROM and Yes no lymphadenopathy Chest Chest palpation & inspection: normal inspection of the chest Resp Effort & Inspection: normal respiratory effort and able to speak in complete sentences Auscultation: clear to auscultation bilaterally Cardio Rate: regular rate Rhythm: regular rhythm GI Inspection: Yes normal to inspection Palpation (GI): Soft to palpation, not firm, nontender and no guarding Neuro General: patient oriented x3 and moves all extremities Cranial nerves: Yes Equal, round and reactive pupils present Cognition (Neuro): normal cognition Motor exam (neuro): 5/5 motor strength present throughout Sensory Exam: Normal double simultaneous stimulation for sensation Coordination: [id number] test normal Extrem General: Yes normal to inspection, Yes full ROM and Yes capillary refill normal Psych Appearance: grossly normal Mental Status: mental status grossly normal Affect: normal affect Attitude: cooperative Thought process: Normal thought process present Thought content: Normal thought content present Insight: Good insight present (Psych) Medical Decision Making Medical Decision Making MDM Narrative: Patient is a 37 year old assigned female at with a history of asthma presenting to the emergency department today with a cough. Patient's physical exam was unremarkable. Patient's COVID-19/Influenza/RSV swab was negative. Patient's chest X-Ray was negative. I explained my physical exam findings as well as all test results to the patient. I answered all questions asked by the patient. I stressed the importance of the patient taking her medication as prescribed. I stressed the importance of the patient following up with her primary care provider. I stressed the importance of the patient returning to the emergency department immediately if her symptoms were to worsen or if she were to develop any dizziness, shortness of breath, difficulty breathing, chest pain, blurry vision, loss of vision, nausea, vomiting, abdominal pain, fever, chills, back pain, or any other complaints. Patient verbalized agreement and understanding with this treatment plan and discharge. Differential Diagnosis Differential Diagnoses: The differential diagnosis associated with the presentation includes Cough Viral illness Lab Data MDM Lab Attestation statement: I reviewed the patient's lab results. My interpretation of these studies and their corresponding values is that they are grossly normal. Labs: Lab Results 05/17/23 Range/Units 08:18 Influenza Type A (PCR) NEGATIVE (Negative) Influenza Type B (PCR) NEGATIVE (Negative) RSV RNA Qual (PCR) NEGATIVE (Negative) SARS-CoV-2 RNA (RT-PCR) NEGATIVE (Negative) Independent Interpretation I performed an independent interpretation of an: Plain X-Ray Interpretation: My interpretation is in agreement with the radiologist's impression of this imaging study. EXAMINATION: XR CHEST CLINICAL INFORMATION: Cough. COMPARISON: 01/21/2022 chest radiographs. TECHNIQUE: Frontal view of the chest was obtained. FINDINGS: No significant abnormality is noted involving the heart, lungs, mediastinum, bony thorax or soft tissues. XR/XR chest 1V IMPRESSION: No acute cardiopulmonary process. ? Dictated By: Edgar Mcdowell MD Signed By: Electronically signed by Edgar Mcdowell MD 05/17/23 0841 Radiology Impression Discussion of test interpretation with radiology: I have reviewed the radiologist's reading. Discharge Plan Discharge Clinical Impression: Viral infection, Cough Patient Disposition: Home, Self-Care Instructions: Viral Syndrome (ED), Acute Cough (ED) Additional Instructions: Follow up with your primary care provider. Return to the emergency department immediately if your symptoms worsen or if you develop any dizziness, shortness of breath, difficulty breathing, chest pain, blurry vision, loss of vision, nausea, vomiting, abdominal pain, fever, chills, back pain, or any other complaints. Prescriptions: New benzonatate 100 mg capsule 100 mg PO BID PRN (Reason: cough) 7 Days Qty: 14 0RF No Action ibuprofen 800 mg tablet 800 mg PO Q8H PRN (Reason: pain) Qty: 14 0RF prednisone 20 mg tablet 40 mg PO DAILY 5 Days Qty: 10 0RF acetaminophen [Tylenol Extra Strength] 500 mg tablet 1,000 mg PO QID PRN (Reason: fever or pain) Qty: 14 0RF oxycodone-acetaminophen [Percocet] 5-325 mg tablet 1 tab PO Q6H PRN (Reason: pain) Qty: 10 0RF cyclobenzaprine 10 mg tablet 10 mg PO Q8H Qty: 10 0RF prednisone 10 mg tablet 10 mg PO DAILY 12 Days Qty: 39 0RF Rx Instructions: Take 6 tabs for the 1st 3 days, then take 4 tabs for the next 3 days, then take 2 tabs for the next 3 days, then take 1 tab for the last 3 days. Referrals: Doretha Shepherd [facility] [Primary Care Provider] - Stand Alone Forms: Work/School Release Interventions: ED Discharge Assessment Last Done: 05/17/23 09:27 Discharge Date/Time: 05/17/23 09:27 Print Language: Citizen Of [place]
== END 2023-05-17 09:27 | disposition home or self-care (01) ==
PROVIDERS: Emergency Provider Emergency Medicine Emergency Medical Services; PCP Nurse Practitioner Acute Care
DX: B34.9 Viral infection, unspecified (principal); R50.9 Fever, unspecified; R05.9 Cough, unspecified; Z20.822 Contact with and (suspected) exposure to COVID-19; Z20.828 Contact with and (suspected) exposure to other viral communicable diseases; Z79.899 Other long term (current) drug therapy
CPT/HCPCS: 0241U; 71045; 99282; 99283

== ENCOUNTER 2023-10-13 08:18 | Emergency (ER) | payer OTHER, SELFPAY ==
[2023-10-13 08:54] VITALS: BP 110/70; PULSE 88; RESP 16; TEMP 36.8; O2SAT 100; BMI 31.2
--- NOTE | 2023-10-13 09:05 | ED_ITS ---
HPI - General Adult General Chief complaint: Upper Respiratory Symptoms Stated complaint: Swollen throat Time Seen by Provider: 10/13/23 09:04 Source: patient Mode of arrival: ambulatory Limitations: no limitations History of Present Illness HPI narrative: 37 year old female with pmhx significant for asthma presents to the ED today for evaluation of sore throat x4 days. Reports pain on swallowing. Denies difficulty swallowing or controlling secretions. Additionally endorses painful lumps in neck that are tender to the touch. Admits to fever of 101F at home that has resolved with Motrin. Last dose this morning. Admits she was treated for strep throat approximately 2 months ago and that these symptoms feel similar. Denies sick contacts. Denies fever, chills, headache, ear pain, cough, chest pain, difficulty breathing, SOB, N/V, rash. Related Data Previous Rx's Medication Instructions Recorded acetaminophen 500 mg tablet 1,000 mg (2 x 500 mg) PO QID PRN 06/13/21 (Tylenol Extra Strength) fever or pain #14 tabs cyclobenzaprine 10 mg tablet 10 mg PO Q8H Muscle spasm #10 tabs 06/13/21 ibuprofen 800 mg tablet 800 mg PO Q8H PRN pain #14 tabs 06/13/21 oxycodone-acetaminophen 5 mg-325 1 tab PO Q6H PRN pain #10 tabs 06/13/21 mg tablet (Percocet) prednisone 20 mg tablet 40 mg (2 x 20 mg) PO DAILY rash 5 06/13/21 days #10 tabs prednisone 10 mg tablet 10 mg PO DAILY 12 days #39 tabs 08/07/21 benzonatate 100 mg capsule 100 mg PO BID PRN cough 7 days #14 05/17/23 caps cephalexin 500 mg capsule 500 mg PO BID 10 days #20 caps 10/13/23 phenol 1.5 %-glycerin 33 % mucosal 1 spray mucous membrane Q8-12H PRN 10/13/23 spray (Chloraseptic Max Sore sore throat #118 mL Throat) Allergies Allergy/AdvReac Type Severity Reaction Status Date / Time Penicillins [PCN] Allergy Severe ANAPHYLAXIS Verified 10/06/21 08:58 latex Allergy Anaphylaxis Verified 08/07/21 08:22 Review of Systems Review of Systems: Constitutional: No fever, chills, fatigue, night sweats, weight changes ENT/Mouth: No ear pain, hearing loss, nasal congestion, sinus pain, rhinorrhea, +sore throat, +odynophagia, No dysphagia Eyes: No eye pain, swelling, redness, vision changes, discharge Cardio: No chest pain, palpitations, JAVIER, orthopnea, peripheral edema Pulm: No SOB, cough, sputum, wheezing, dyspnea, hemoptysis GI: No nausea, vomiting, hematemesis, abdominal pain, diarrhea, constipation, hematochezia, melena : No irregular bleeding, dysuria, frequency, urgency, hesitancy, hematuria, flank pain MSK: No back pain, neck pain, joint pain, myalgias Skin: No lesions, rashes Neuro: No weakness, numbness, paresthesias, LOC, dizziness, headache All other systems reviewed and are negative. [facility] Past Medical History Attestation statement: The following information was validated with the patient. Source: old records reviewed and nursing notes reviewed Medical History COVID-19 Asthma Surgical History H/O tubal ligation Social History Social History Alcohol intake: never Patient Tobacco Use Status: Never used Tobacco Advance Directives: No Advance Directives Information Provided: Yes Physical Exam ED Vital Signs: Vital Signs - 24 hr 10/13/23 08:54 Temperature 98.3 F Pulse Rate 88 Respiratory Rate 16 Blood Pressure 110/70 Pulse Oximetry 100 Oxygen Delivery Method Room Air BMI result Body Mass Index 31.2 Vital signs stable, afebrile Const General: cooperative, healthy appearing, comfortable, no acute distress, alert and awake Orientation/consciousness: patient oriented x3 Limitations: no limitations HENMT Other: + posterior oropharynx erythematous, minimal bilateral tonsillar edema, uvula is midline, no tonsilar exudates or peritonsillar masses, controlling secretions and speaking in complete sentences. airway patent. Head: Yes normal to inspection, Yes normocephalic and Yes atraumatic Ears: hearing grossly normal bilaterally, external ears normal, TM's normal bilaterally, EAC's normal, mastoids normal and no periauricular adenopathy General nose exam: Normal external nose present and No nasal discharge present Face and sinus: Yes normal facial exam and Yes sinuses nontender Eyes General: appearance normal, both eyes and all related structures Pupils: Equal, round and reactive pupils present Neck Other: + no cervical, submandibular or submental LAD. Neck: Yes normal visual inspection, Yes full ROM and Yes no lymphadenopathy Resp Effort & Inspection: normal respiratory effort and able to speak in complete sentences Auscultation: clear to auscultation bilaterally Cardio Rate: regular rate Rhythm: regular rhythm GI Inspection: Yes normal to inspection Palpation (GI): Soft to palpation and nontender Skin General skin exam: no rashes or lesions noted Neuro General: patient oriented x3, gait normal and moves all extremities Cranial nerves: Yes Equal, round and reactive pupils present Extrem General: Yes normal to inspection Course Course Course Narrative: 1041-- patient tested negative for mono, flu, COVID, RSV, strep. Her presentation is consistent with strep pharyngitis with centor criteria of 3 (fever at home, LAD, no cough). There is no evidence of a peritonsillar abscess or retropharyngeal mass. Airway is patent. She is controlling secretions and speaking complete sentences. Will send Keflex to patient's pharmacy given allergy to penicillin. Patient has remained stable throughout ED visit today. Discussed strict return precautions. All questions answered at this time. Patient is agreeable with disposition and stable for discharge. Medications Administered Discontinued Medications Generic Name Dose Route Start Last Admin Trade Name Freq PRN Reason Stop Dose Admin Lidocaine HCl 15 ml 10/13/23 09:27 10/13/23 10:04 Lidocaine Hcl Viscous 2 % 15 Ml Solution MUCOUS MEM 10/13/23 09:28 15 ml ONCE ONE Administration Medical Decision Making Medical Decision Making [facility] Narrative: 37 year old female with pmhx significant for asthma presents to the ED today for evaluation of sore throat x4 days. Vital signs stable, afebrile however patient reports taking motrin prior to arrival. Bilateral EACs and TMs WNL. Posterior oropharynx erythematous. Minimal amount of edema noted to bilateral tonsils. No tonsillar exudates. Uvula is midline. Controlling secretions and speaking complete sentences. Airways patent. No obvious signs of respiratory distress. There is bilateral cervical lymphadenopathy. Centor criteria 3. Clinical concern for strep pharyngitis, mono, viral syndrome. 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 Plan for viral serology, strep swab, and re-evaluation. Differential Diagnosis Differential Diagnoses: The differential diagnosis associated with the presentation includes as above. Admission/Observation Not indicated Lab Data MDM Lab Attestation statement: I reviewed the patient's lab results. as above Labs: Lab Results 10/13/23 10/13/23 Range/Units 09:35 09:36 Monoscreen Negative (Negative) Influenza Type A (PCR) NEGATIVE (Negative) Influenza Type B (PCR) NEGATIVE (Negative) RSV RNA Qual (PCR) NEGATIVE (Negative) SARS-CoV-2 RNA (RT-PCR) NEGATIVE (Negative) S. pyogenes GrpA AUDIE Negative (Negative) External Record Review External record reviewed: Inpatient record Tests considered The following testing was considered but not selected: I considered ordering CT neck soft tissues however there is no concern for peritonsillar abscess or retropharyngeal abscess, not warranted at this time. Prescription Management I considered prescription management with: Pain Medication and Antibiotic Critical Care Time Critical Care Time Critical Care Time: No Discharge Plan Discharge Clinical Impression: Pharyngitis Patient Disposition: Home, Self-Care Instructions: Pharyngitis (ED) Additional Instructions: Today tested negative for COVID, flu, RSV, strep throat and mono. Your symptoms are consistent with strep throat and he will be treated for this. Keflex is an antibiotic that has been sent to your pharmacy. Take this as directed for the next 10 days. Do not miss any doses or stop taking it early as this can cause the infection to return or worsen. Chloroseptic spray has been sent to your pharmacy to help with throat discomfort. You may also take Ibuprofen and Tylenol at home as needed for fevers or body aches. Make sure to change out your toothbrush as you can become reinfected. If anyone else around you is experiencing similar symptoms, recommend coming to ED for evaluation. You may return to work after 48 hours of antibiotics. Follow up with your PCP as needed. Return to the emergency department if your symptoms persist or worsen despite tr eatment or if you have difficulty swallowing, opening your mouth, or develop a rash. In the case of an emergency call 911. Prescriptions: New cephalexin 500 mg capsule 500 mg PO BID 10 Days Qty: 20 0RF Chloraseptic Max Sore Throat 1.5-33 % spray,non-aerosol 1 spray mucous membrane Q8-12H PRN (Reason: sore throat) Qty: 118 0RF Rx Instructions: leave on area for 15 seconds then spit out No Action ibuprofen 800 mg tablet 800 mg PO Q8H PRN (Reason: pain) Qty: 14 0RF prednisone 20 mg tablet 40 mg PO DAILY 5 Days Qty: 10 0RF acetaminophen [Tylenol Extra Strength] 500 mg tablet 1,000 mg PO QID PRN (Reason: fever or pain) Qty: 14 0RF oxycodone-acetaminophen [Percocet] 5-325 mg tablet 1 tab PO Q6H PRN (Reason: pain) Qty: 10 0RF cyclobenzaprine 10 mg tablet 10 mg PO Q8H Qty: 10 0RF prednisone 10 mg tablet 10 mg PO DAILY 12 Days Qty: 39 0RF Rx Instructions: Take 6 tabs for the 1st 3 days, then take 4 tabs for the next 3 days, then take 2 tabs for the next 3 days, then take 1 tab for the last 3 days. benzonatate 100 mg capsule 100 mg PO BID PRN (Reason: cough) 7 Days Qty: 14 0RF Referrals: [facility] [place] [facility] Interventions: ED Discharge Assessment Last Done: 10/13/23 11:09 Discharge Date/Time: 10/13/23 11:09
[2023-10-13 09:53] LABS: IDNOW Serial# 08D9AD1C; Strep A Nucleic Acid Negative (Negative)
[2023-10-13] MEDS: Lidocaine HCl Viscous 2 % 15 ML SOLUTION MUCOUS MEM (10:04)
[2023-10-13 10:22] LABS: Monotest Negative (Negative)
[2023-10-13 10:22] LABS: Influenza A PCR NEGATIVE (Negative); Influenza B PCR NEGATIVE (Negative); Resp Syncy Virus RNA Qual PCR NEGATIVE (Negative); SARS COV2 PCR INHOUSE NEGATIVE (Negative)
== END 2023-10-13 11:09 | disposition home or self-care (01) ==
PROVIDERS: Physician Assistant Medical; Emergency Provider Student in an Organized Health Care Education/Training Program
DX: J02.9 Acute pharyngitis, unspecified (principal); Z11.52 Encounter for screening for COVID-19; Z88.0 Allergy status to penicillin
CPT/HCPCS: 0241U; 86308; 87651; 99283

== ENCOUNTER 2023-10-16 07:03 | Emergency (ER) | payer OTHER, SELFPAY ==
[2023-10-16 07:18] VITALS: BP 112/73; PULSE 106; RESP 18; TEMP 36.4; O2SAT 96; BMI 30.8
--- NOTE | 2023-10-16 07:48 | ED_ITS ---
HPI - General Adult General Chief complaint: Upper Respiratory Symptoms Stated complaint: Swelling in throat, asthma Time Seen by Provider: 10/16/23 07:33 Source: patient Mode of arrival: ambulatory Limitations: no limitations History of Present Illness HPI narrative: Patient is a 37 year old assigned female at with a history of asthma presenting to the emergency department today with a sore throat. Patient states that she was seen a few days ago, prescribed ABX, but the sore throat has not improved / resolved. Patient denies any dizziness, lightheadedness, abdominal pain, nausea, vomiting, fever, chills, blurry vision, double vision, loss of vision, chest pain, difficulty breathing, shortness of breath, back pain, night sweats, pain with urination, increased urinary frequency, increased urinary urgency, blood in her urine or stool, syncope or a near syncopal episode, recent trauma or falls, bowel incontinence, bladder incontinence, bowel retention, bladder retention, or any other complaints at this time. Onset (ago): day(s) Severity: mild Relieving factors: none Exacerbating factors: none Associated symptoms: denies other symptoms Treatments prior to arrival: other (antibiotic) Related Data Previous Rx's Medication Instructions Recorded acetaminophen 500 mg tablet 1,000 mg (2 x 500 mg) PO QID PRN 06/13/21 (Tylenol Extra Strength) fever or pain #14 tabs cyclobenzaprine 10 mg tablet 10 mg PO Q8H Muscle spasm #10 tabs 06/13/21 ibuprofen 800 mg tablet 800 mg PO Q8H PRN pain #14 tabs 06/13/21 oxycodone-acetaminophen 5 mg-325 1 tab PO Q6H PRN pain #10 tabs 06/13/21 mg tablet (Percocet) prednisone 20 mg tablet 40 mg (2 x 20 mg) PO DAILY rash 5 06/13/21 days #10 tabs prednisone 10 mg tablet 10 mg PO DAILY 12 days #39 tabs 08/07/21 benzonatate 100 mg capsule 100 mg PO BID PRN cough 7 days #14 05/17/23 caps cephalexin 500 mg capsule 500 mg PO BID 10 days #20 caps 10/13/23 phenol 1.5 %-glycerin 33 % mucosal 1 spray mucous membrane Q8-12H PRN 10/13/23 spray (Chloraseptic Max Sore sore throat #118 mL Throat) Allergies Allergy/AdvReac Type Severity Reaction Status Date / Time Penicillins [PCN] Allergy Severe ANAPHYLAXIS Verified 10/16/23 07:17 latex Allergy Anaphylaxis Verified 10/16/23 07:17 Review of Systems Constitutional: Constitutional: Reports no additional constitutional complaints, Denies chills, Denies fever(s) and Denies night sweats Eyes: Eyes: Reports no additional eye complaints, Denies blurry vision, Denies change in vision, Denies diplopia, Denies eye discharge, Denies loss of vision and Denies eye pain ENT: Denies dizziness and Reports sore throat Cardiovascular: Cardiovascular: Reports no additional cardiovascular complaints, Denies chest pain, Denies lightheadedness, Denies Loss of Consciousness and Denies dyspnea Respiratory: Respiratory: Reports no additional respiratory complaints and Denies dyspnea Gastrointestinal: Gastrointestinal: Reports no additional gastrointestinal complaints, Denies abdominal pain, Denies melena, Denies hematochezia, Denies change in bowel habits and Denies change in stool character Genitourinary: Genitourinary: Denies hematuria, Denies urinary frequency, Denies dysuria, Denies urinary incontinence, Denies urinary hesitancy and Denies urinary urgency Musculoskeletal: Musculoskeletal: Reports no additional musculoskeletal complaints, Denies numbness and Denies tingling Neurologic: Denies dizziness, Denies loss of vision, Denies numbness and Denies tingling Psychiatric: Psychiatric: Reports no additional psychiatric complaints Endocrine: Endocrine: Reports no additional endocrine complaints Hematologic/Lymphatic: Hematologic/Lymphatic: Reports no additional hematologic/lymphatic complaints Allergic/Immunologic: Allergic/Immunologic: Reports no additional allergic/immunologic complaints PMFSH Past Medical History Attestation statement: The following information was validated with the patient. Source: old records reviewed and nursing notes reviewed Medical History COVID-19 Asthma Surgical History H/O tubal ligation Social History Social History Alcohol intake: never Patient Tobacco Use Status: Never used Tobacco Advance Directives: No Advance Directives Information Provided: No Physical Exam ED Vital Signs: Vital Signs - 24 hr 10/16/23 07:18 Temperature 97.6 F Pulse Rate 106 H Respiratory Rate 18 Blood Pressure 112/73 Pulse Oximetry 96 Oxygen Delivery Method Room Air BMI result Body Mass Index 30.8 Const General: cooperative, no acute distress, alert and awake Nutritional Appearance: well nourished Orientation/consciousness: patient oriented x3 Limitations: no limitations HENMT Head: Yes normal to inspection and Yes atraumatic Ears: hearing grossly normal bilaterally and external ears normal General nose exam: Normal external nose present, no nasal discharge noted and no epistaxis Face and sinus: Yes normal facial exam, No abrasion and No laceration Mouth: Normal oral and palatal mucosa present, no drooling and no muffled voice Eyes General: appearance normal, both eyes and all related structures Periorbital: periorbital findings normal Eyelids: Yes eyelids normal Conjunctivae: conjunctivae normal Pupils: Equal, round and reactive pupils present EOM: EOMs intact bilaterally Neck Neck: Yes normal visual inspection, Yes full ROM and Yes no lymphadenopathy Chest Chest palpation & inspection: normal inspection of the chest Resp Effort & Inspection: normal respiratory effort and able to speak in complete sentences GI Inspection: Yes normal to inspection Neuro General: patient oriented x3 and moves all extremities Cranial nerves: Yes Equal, round and reactive pupils present Cognition (Neuro): normal cognition Motor exam (neuro): 5/5 motor strength present throughout Sensory Exam: Normal double simultaneous stimulation for sensation Coordination: [id number] test normal Extrem General: Yes normal to inspection, Yes full ROM and Yes capillary refill normal Psych Appearance: grossly normal Mental Status: mental status grossly normal Affect: normal affect Attitude: cooperative Thought process: Normal thought process present Thought content: Normal thought content present Insight: Good insight present (Psych) Medical Decision Making Medical Decision Making MDM Narrative: Patient is a 37 year old assigned female at with a history of asthma presenting to the emergency department today with a sore throat. Patient's physical exam was unremarkable. Patient's strep test was negative. I explained my physical exam findings as well as all test results to the patient. I answered all questions asked by the patient. I stressed the importance of the patient taking her medication as prescribed. I stressed the importance of the patient following up with her primary care provider. I stressed the importance of the patient returning to the emergency department immediately if her symptoms were to worsen or if she were to develop any dizziness, shortness of breath, difficulty breathing, chest pain, blurry vision, loss of vision, nausea, vomiting, abdominal pain, fever, chills, back pain, or any other complaints. Patient verbalized agreement and understanding with this treatment plan and discharge. Differential Diagnosis Differential Diagnoses: The differential diagnosis associated with the presentation includes Pharyngitis Strep pharyngitis Admission/Observation Consideration of admission/observation: Escalation of care including admission/observation considered Patient would have been admitted to the hospital had her work up had any findings where hospital admission was appropriate and her clinical presentation warranted hospital admission. Lab Data MDM Lab Attestation statement: I reviewed the patient's lab results. My interpretation of these studies and their corresponding values is that they are grossly normal. Labs: Lab Results 10/16/23 Range/Units 08:05 S. pyogenes GrpA AUDIE Negative (Negative) Tests considered The following testing was considered but not selected: Imaging was considered however, patient's current clinical presentation does not warrant it at this time. Discharge Plan Discharge Clinical Impression: Viral infection Patient Disposition: Home, Self-Care Instructions: Viral Syndrome (ED) Additional Instructions: Follow up with your primary care provider. Return to the emergency department immediately if your symptoms worsen or if you develop any dizziness, shortness of breath, difficulty breathing, chest pain, blurry vision, loss of vision, nausea, vomiting, abdominal pain, fever, chills, back pain, or any other complaints. Prescriptions: No Action ibuprofen 800 mg tablet 800 mg PO Q8H PRN (Reason: pain) Qty: 14 0RF prednisone 20 mg tablet 40 mg PO DAILY 5 Days Qty: 10 0RF acetaminophen [Tylenol Extra Strength] 500 mg tablet 1,000 mg PO QID PRN (Reason: fever or pain) Qty: 14 0RF oxycodone-acetaminophen [Percocet] 5-325 mg tablet 1 tab PO Q6H PRN (Reason: pain) Qty: 10 0RF cyclobenzaprine 10 mg tablet 10 mg PO Q8H Qty: 10 0RF prednisone 10 mg tablet 10 mg PO DAILY 12 Days Qty: 39 0RF Rx Instructions: Take 6 tabs for the 1st 3 days, then take 4 tabs for the next 3 days, then take 2 tabs for the next 3 days, then take 1 tab for the last 3 days. benzonatate 100 mg capsule 100 mg PO BID PRN (Reason: cough) 7 Days Qty: 14 0RF cephalexin 500 mg capsule 500 mg PO BID 10 Days Qty: 20 0RF Chloraseptic Max Sore Throat 1.5-33 % spray,non-aerosol 1 spray mucous membrane Q8-12H PRN (Reason: sore throat) Qty: 118 0RF Rx Instructions: leave on area for 15 seconds then spit out Referrals: [facility] [place] [Provider Group] (Call to establish and follow up with a primary care provider. If you already have a primary care provider, please follow up with them.) [facility] [place] [facility] [[facility]] (Call to establish and follow up with a primary care provider. If you already have a primary care provider, please follow up with them.) [facility] [place] [facility] [Provider Group] (Call to establish and follow up with a primary care provider. If you already have a primary care provider, please follow up with them.) Print Language: Portuguese
--- NOTE | 2023-10-16 07:52 | PC.NURSE ---
Pt is a 37 y/o female who presents for evaluation of ongoing shortness of breath since . Was seen here, evaluated and prescribed Keflex which has not helped. Pt reports continuing to take the antibiotics as prescribed but reports complicating symptoms after taking them including the sensation of throat swelling and fever. Pt reports sore throat, difficulty swallowing, occasional headaches, fevers, and now head congestion. PO intake is poor secondary to symptoms. Pt reports some difficulty lying down with pain at the base of her chest and abd pain from coughing. No known sick contacts. Rapid strep, flu, and covid test on first visit was negative.
[2023-10-16 08:27] LABS: IDNOW Serial# 08D9AD1C
[2023-10-16 08:28] LABS: Strep A Nucleic Acid Negative (Negative)
[2023-10-16] MEDS: dexAMETHasone sod phosphate 10 MG/ML VIAL PO (08:57)
[2023-10-16 09:21] LABS: Influenza A PCR POSITIVE (Negative); Influenza B PCR NEGATIVE (Negative); Resp Syncy Virus RNA Qual PCR NEGATIVE (Negative); SARS COV2 PCR INHOUSE NEGATIVE (Negative)
== END 2023-10-16 09:06 | disposition home or self-care (01) ==
PROVIDERS: Physician Assistant Medical; Emergency Provider Emergency Medicine Emergency Medical Services
DX: B34.9 Viral infection, unspecified (principal); J45.909 Unspecified asthma, uncomplicated; Z20.822 Contact with and (suspected) exposure to COVID-19; Z20.828 Contact with and (suspected) exposure to other viral communicable diseases
CPT/HCPCS: 0241U; 87651; 99282; 99283; J1100

== ENCOUNTER 2023-10-24 06:30 | Emergency (ER) | payer OTHER, SELFPAY ==
[2023-10-24 06:34] VITALS: BP 118/82; PULSE 81; RESP 18; TEMP 36.6; O2SAT 97; BMI 29.9
--- NOTE | 2023-10-24 08:35 | ED.GENADULT ---
HPI - General Adult General Chief complaint: Upper Respiratory Symptoms Stated complaint: Sore throat/Sob Time Seen by Provider: 10/24/23 08:31 Source: patient Mode of arrival: ambulatory Limitations: no limitations History of Present Illness HPI narrative: Patient is a 37 year old assigned female at with a history of asthma presenting to the emergency department today with a sore throat and wheezing. Patient states that over the last month she has had a sore throat and wheezing. Patient denies any dizziness, lightheadedness, abdominal pain, nausea, vomiting, fever, chills, blurry vision, double vision, loss of vision, chest pain, difficulty breathing, shortness of breath, back pain, night sweats, pain with urination, increased urinary frequency, increased urinary urgency, blood in her urine or stool, syncope or a near syncopal episode, recent trauma or falls, bowel incontinence, bladder incontinence, bowel retention, bladder retention, or any other complaints at this time. Onset (ago): month(s) (1) Severity: mild Severity scale (1-10): 2 Relieving factors: none Exacerbating factors: none Associated symptoms: denies other symptoms Treatments prior to arrival: none Related Data Previous Rx's Medication Instructions Recorded acetaminophen 500 mg tablet 1,000 mg (2 x 500 mg) PO QID PRN 06/13/21 (Tylenol Extra Strength) fever or pain #14 tabs cyclobenzaprine 10 mg tablet 10 mg PO Q8H Muscle spasm #10 tabs 06/13/21 ibuprofen 800 mg tablet 800 mg PO Q8H PRN pain #14 tabs 06/13/21 oxycodone-acetaminophen 5 mg-325 1 tab PO Q6H PRN pain #10 tabs 06/13/21 mg tablet (Percocet) prednisone 20 mg tablet 40 mg (2 x 20 mg) PO DAILY rash 5 06/13/21 days #10 tabs prednisone 10 mg tablet 10 mg PO DAILY 12 days #39 tabs 08/07/21 benzonatate 100 mg capsule 100 mg PO BID PRN cough 7 days #14 05/17/23 caps cephalexin 500 mg capsule 500 mg PO BID 10 days #20 caps 10/13/23 phenol 1.5 %-glycerin 33 % mucosal 1 spray mucous membrane Q8-12H PRN 10/13/23 spray (Chloraseptic Max Sore sore throat #118 mL Throat) albuterol sulfate 1.25 mg/3 mL 1.25 mg (3 mL) inhalation QID PRN 10/24/23 solution for nebulization bronchospasm #90 mL albuterol sulfate 90 mcg/actuation 1 puff inhalation QID #8.5 grams 10/24/23 aerosol inhaler prednisone 20 mg tablet 20 mg PO DAILY 7 days #7 tabs 10/24/23 Allergies Allergy/AdvReac Type Severity Reaction Status Date / Time Penicillins [PCN] Allergy Severe ANAPHYLAXIS Verified 10/24/23 06:35 latex Allergy Anaphylaxis Verified 10/24/23 06:35 Review of Systems Constitutional: Constitutional: Reports no additional constitutional complaints, Denies chills, Denies fever(s) and Denies night sweats Eyes: Eyes: Reports no additional eye complaints, Denies blurry vision, Denies change in vision, Denies diplopia, Denies eye discharge, Denies loss of vision and Denies eye pain ENT: Denies dizziness and Reports sore throat Cardiovascular: Cardiovascular: Reports no additional cardiovascular complaints, Denies chest pain, Denies lightheadedness, Denies Loss of Consciousness and Denies dyspnea Respiratory: Respiratory: Reports no additional respiratory complaints and Denies dyspnea Gastrointestinal: Gastrointestinal: Reports no additional gastrointestinal complaints, Denies abdominal pain, Denies melena, Denies hematochezia, Denies change in bowel habits and Denies change in stool character Genitourinary: Genitourinary: Denies hematuria, Denies urinary frequency, Denies dysuria, Denies urinary incontinence, Denies urinary hesitancy and Denies urinary urgency Musculoskeletal: Musculoskeletal: Reports no additional musculoskeletal complaints, Denies numbness and Denies tingling Neurologic: Denies dizziness, Denies loss of vision, Denies numbness and Denies tingling Psychiatric: Psychiatric: Reports no additional psychiatric complaints Endocrine: Endocrine: Reports no additional endocrine complaints Hematologic/Lymphatic: Hematologic/Lymphatic: Reports no additional hematologic/lymphatic complaints Allergic/Immunologic: Allergic/Immunologic: Reports no additional allergic/immunologic complaints PMFSH Past Medical History Attestation statement: The following information was validated with the patient. Source: old records reviewed and nursing notes reviewed Onset Date is defined in the Problem List Problems that require an onset date and time if occurred within 24 hrs of arrival to the ED Aortic Dissection and Rupture; Neurologic impairment; Cardiopulmonary Arrest; Endotracheal Intubation; Insertion or Replacement of Mechanical Circulatory Assist Device Medical History COVID-19 Asthma Surgical History H/O tubal ligation Social History Social History Alcohol intake: never Patient Tobacco Use Status: Never used Tobacco Advance Directives: No Physical Exam ED Vital Signs: Vital Signs - 24 hr 10/24/23 06:34 Temperature 97.8 F Pulse Rate 81 Respiratory Rate 18 Blood Pressure 118/82 Pulse Oximetry 97 Oxygen Delivery Method Room Air BMI result Body Mass Index 29.9 Const General: cooperative, no acute distress, alert and awake Nutritional Appearance: well nourished Orientation/consciousness: patient oriented x3 Limitations: no limitations HENMT Head: Yes normal to inspection and Yes atraumatic Ears: hearing grossly normal bilaterally and external ears normal General nose exam: Normal external nose present, no nasal discharge noted and no epistaxis Face and sinus: Yes normal facial exam, No abrasion and No laceration Mouth: Normal oral and palatal mucosa present, no drooling and no muffled voice Eyes General: appearance normal, both eyes and all related structures Periorbital: periorbital findings normal Eyelids: Yes eyelids normal Conjunctivae: conjunctivae normal Pupils: Equal, round and reactive pupils present EOM: EOMs intact bilaterally Neck Neck: Yes normal visual inspection, Yes full ROM and Yes no lymphadenopathy Chest Chest palpation & inspection: normal inspection of the chest Resp Effort & Inspection: normal respiratory effort and able to speak in complete sentences GI Inspection: Yes normal to inspection Neuro General: patient oriented x3 and moves all extremities Cranial nerves: Yes Equal, round and reactive pupils present Cognition (Neuro): normal cognition Motor exam (neuro): 5/5 motor strength present throughout Sensory Exam: Normal double simultaneous stimulation for sensation Coordination: [id number] test normal Extrem General: Yes normal to inspection, Yes full ROM and Yes capillary refill normal Psych Appearance: grossly normal Mental Status: mental status grossly normal Affect: normal affect Attitude: cooperative Thought process: Normal thought process present Thought content: Normal thought content present Insight: Good insight present (Psych) Medical Decision Making Medical Decision Making MDM Narrative: Patient is a 37 year old assigned female at with a history of asthma presenting to the emergency department today with a sore throat and worsening wheezing. Patient's physical exam was unremarkable. Patient's COVID-19, influenza, and RSV tests were negative. I explained my physical exam findings as well as all test results to the patient. I answered all questions asked by the patient. I stressed the importance of the patient taking her medication as prescribed. I stressed the importance of the patient following up with her primary care provider. I stressed the importance of the patient returning to the emergency department immediately if her symptoms were to worsen or if she were to develop any dizziness, shortness of breath, difficulty breathing, chest pain, blurry vision, loss of vision, nausea, vomiting, abdominal pain, fever, chills, back pain, or any other complaints. Patient verbalized agreement and understanding with this treatment plan and discharge. Differential Diagnosis Differential Diagnoses: The differential diagnosis associated with the presentation includes URI Pharyngitis Viral illness Asthma exacerbation RSV COVID-19 Influenza Admission/Observation Consideration of admission/observation: Escalation of care including admission/observation considered Patient would have been admitted to the hospital had her work up had any findings where hospital admission was appropriate and her clinical presentation warranted hospital admission. Lab Data MDM Lab Attestation statement: I reviewed the patient's lab results. My interpretation of these studies and their corresponding values is that they are grossly normal. Labs: Lab Results 10/24/23 Range/Units 07:39 Influenza Type A (PCR) NEGATIVE (Negative) Influenza Type B (PCR) NEGATIVE (Negative) RSV RNA Qual (PCR) NEGATIVE (Negative) SARS-CoV-2 RNA (RT-PCR) NEGATIVE (Negative) S. pyogenes GrpA AUDIE Negative (Negative) Discharge Plan Discharge Clinical Impression: Viral infection, Asthma Patient Disposition: Home, Self-Care Instructions: Asthma (DC), Viral Syndrome (ED) Additional Instructions: Follow up with your primary care provider. Return to the emergency department immediately if your symptoms worsen or if you develop any dizziness, shortness of breath, difficulty breathing, chest pain, blurry vision, loss of vision, nausea, vomiting, abdominal pain, fever, chills, back pain, or any other complaints. Prescriptions: New albuterol sulfate 90 mcg/actuation HFA aerosol inhaler 1 puff inhalation QID Qty: 8.5 0RF albuterol sulfate 1.25 mg/3 mL solution for nebulization 1.25 mg inhalation QID PRN (Reason: bronchospasm) Qty: 90 0RF prednisone 20 mg tablet 20 mg PO DAILY 7 Days Qty: 7 0RF No Action ibuprofen 800 mg tablet 800 mg PO Q8H PRN (Reason: pain) Qty: 14 0RF prednisone 20 mg tablet 40 mg PO DAILY 5 Days Qty: 10 0RF acetaminophen [Tylenol Extra Strength] 500 mg tablet 1,000 mg PO QID PRN (Reason: fever or pain) Qty: 14 0RF oxycodone-acetaminophen [Percocet] 5-325 mg tablet 1 tab PO Q6H PRN (Reason: pain) Qty: 10 0RF cyclobenzaprine 10 mg tablet 10 mg PO Q8H Qty: 10 0RF prednisone 10 mg tablet 10 mg PO DAILY 12 Days Qty: 39 0RF Rx Instructions: Take 6 tabs for the 1st 3 days, then take 4 tabs for the next 3 days, then take 2 tabs for the next 3 days, then take 1 tab for the last 3 days. benzonatate 100 mg capsule 100 mg PO BID PRN (Reason: cough) 7 Days Qty: 14 0RF cephalexin 500 mg capsule 500 mg PO BID 10 Days Qty: 20 0RF Chloraseptic Max Sore Throat 1.5-33 % spray,non-aerosol 1 spray mucous membrane Q8-12H PRN (Reason: sore throat) Qty: 118 0RF Rx Instructions: leave on area for 15 seconds then spit out Referrals: [facility] [place]] (Call to establish and follow up with a primary care provider. If you already have a primary care provider, please follow up with them.) [facility] [place] [facility]] (Call to establish and follow up with a primary care provider. If you already have a primary care provider, please follow up with them.) [facility] [place] [facility]] (Call to establish and follow up with a primary care provider. If you already have a primary care provider, please follow up with them.) Stand Alone Forms: Work/School Release Interventions: ED Discharge Assessment Last Done: 10/24/23 08:48 Discharge Date/Time: 10/24/23 08:48 Print Language: Yakut
== END 2023-10-24 08:48 | disposition home or self-care (01) ==
PROVIDERS: Emergency Provider Student in an Organized Health Care Education/Training Program
DX: B34.9 Viral infection, unspecified (principal); J02.9 Acute pharyngitis, unspecified; J45.909 Unspecified asthma, uncomplicated; Z79.899 Other long term (current) drug therapy; Z20.828 Contact with and (suspected) exposure to other viral communicable diseases; Z20.822 Contact with and (suspected) exposure to COVID-19
CPT/HCPCS: 0241U; 87651; 99282; 99283

== ENCOUNTER 2024-05-19 07:13 | Emergency (ER) | payer OTHER, SELFPAY ==
--- NOTE | ~2024-05-19 | XR_ITS ---
EXAMINATION: XR CHEST CLINICAL INFORMATION: Chest pain COMPARISON: Chest x-ray on 05/17/2023 TECHNIQUE: Frontal view of the chest was obtained. FINDINGS: vascularity. LUNGS: Lungs are clear. No pneumothorax is seen. BONES: Bony skeleton is intact. Focal calcification is seen above the right humeral greater tuberosity. XR/XR chest 1V IMPRESSION: 1. Unchanged, No radiographic signs of acute cardiopulmonary disease. 2. Calcific tendinitis of the right shoulder.
[2024-05-19 07:19] VITALS: BP 114/73; PULSE 81; RESP 17; TEMP 36.7; O2SAT 96; BMI 31.1
--- NOTE | 2024-05-19 07:23 | ECG_ITS ---
Test Reason : cp Blood Pressure : / mmHG Vent. Rate : 075 BPM Atrial Rate : 075 BPM P-R Int : 130 ms QRS Dur : 080 ms QT Int : 382 ms P-R-T Axes : 021 065 041 degrees QTc Int : 426 ms Normal sinus rhythm Normal ECG When compared with ECG of 21-JAN-2022 09:48, No significant change was found Referred By: Generic ED Physician Electronically Signed By:Andrea Frederick
--- NOTE | 2024-05-19 07:36 | ED.URI ---
HPI - URI/Sore Throat General Chief Complaint: Upper Respiratory Symptoms Stated Complaint: Chest pain, sore throat Time Seen by Provider: 05/19/24 07:28 Source: patient Mode of arrival: ambulatory Limitations: no limitations History of Present Illness ED Provider: DR. Ayala HPI Narrative: 38-year-old female otherwise healthy came in for evaluation of multiple symptoms including generalized body ache, headache, sore throat, ear pain, diffuse joint pain, and left-sided chest pain. Patient's symptoms started 2 days ago, history exposure to a sick co-worker last week. No recent travel, no history of prolonged immobilization, no lower extremity swelling. Related Data Previous Rx's ?Medication ?Instructions ?Recorded acetaminophen 500 mg tablet 1,000 mg (2 x 500 mg) PO QID PRN 06/13/21 (Tylenol Extra Strength) fever or pain #14 tabs cyclobenzaprine 10 mg tablet 10 mg PO Q8H Muscle spasm #10 tabs 06/13/21 ibuprofen 800 mg tablet 800 mg PO Q8H PRN pain #14 tabs 06/13/21 oxycodone-acetaminophen 5 mg-325 1 tab PO Q6H PRN pain #10 tabs 06/13/21 mg tablet (Percocet) prednisone 20 mg tablet 40 mg (2 x 20 mg) PO DAILY rash 5 06/13/21 days #10 tabs prednisone 10 mg tablet 10 mg PO DAILY 12 days #39 tabs 08/07/21 benzonatate 100 mg capsule 100 mg PO BID PRN cough 7 days #14 05/17/23 caps cephalexin 500 mg capsule 500 mg PO BID 10 days #20 caps 10/13/23 phenol 1.5 %-glycerin 33 % mucosal 1 spray mucous membrane Q8-12H PRN 10/13/23 spray (Chloraseptic Max Sore sore throat #118 mL Throat) albuterol sulfate 1.25 mg/3 mL 1.25 mg (3 mL) inhalation QID PRN 10/24/23 solution for nebulization bronchospasm #90 mL albuterol sulfate 90 mcg/actuation 1 puff inhalation QID #8.5 grams 10/24/23 aerosol inhaler prednisone 20 mg tablet 20 mg PO DAILY 7 days #7 tabs 10/24/23 Allergies Allergy/AdvReac Type Severity Reaction Status Date / Time Penicillins [PCN] Allergy Severe ANAPHYLAXIS Verified 05/19/24 07:24 latex Allergy Anaphylaxis Verified 05/19/24 07:24 Review of Systems Review of Systems: All other systems are reviewed and are negative Constitutional: Reports as per HPI and Reports no additional constitutional complaints Eyes: Reports as per HPI and Reports no additional eye complaints Reports system reviewed and no additional complaints, except as documented Cardiovascular: Reports as per HPI and Reports no additional cardiovascular complaints Respiratory: Reports as per HPI and Reports no additional respiratory complaints Gastrointestinal: Reports as per HPI and Reports no additional gastrointestinal complaints Genitourinary: Reports no additional female genitourinary complaints Musculoskeletal: Reports no additional musculoskeletal complaints Skin/Breast: Reports system reviewed and no additional complaints, except as docu Psychiatric: Reports no additional psychiatric complaints Endocrine: Reports no additional endocrine complaints Hematologic/Lymphatic: Reports no additional hematologic/lymphatic complaints Allergic/Immunologic: Reports no additional allergic/immunologic complaints Reports system reviewed and no additional complaints, except as documented and Reports Abnormal speech present [facility] Past Medical History Medical History COVID-19 Asthma Surgical History H/O tubal ligation Social History Social History Alcohol intake: never Patient Tobacco Use Status: Never used Tobacco Advance Directives: No Physical Exam Vital Signs: Vital Signs: Last Vital Signs Temp 98.0 F 05/19/24 08:26 Pulse 69 05/19/24 08:26 Resp 13 05/19/24 08:26 BP 105/65 05/19/24 08:26 Pulse Ox 96 05/19/24 07:19 O2 Del Method Room Air 05/19/24 08:26 BMI result Body Mass Index 31.1 Vital signs have been reviewed and appear to be correct. Blood pressure elevated. Heart rate normal. Respiratory rate normal. Temperature normal. Oxygen saturation normal. Appearance: Alert. Oriented X3. No acute distress. Head: Normal external exam. Normocephalic. Atraumatic. No Jacques signs noted. No raccoon eyes noted Eyes: PERRLA. EOMI. Conjunctiva and sclera normal. Eyelids normal. ENT: TM's Normal. Pharynx normal. Uvula midline. Moist mucous membranes. No trismus noted. No drooling noted. No muffled voice noted. Neck: Normal inspection. Neck supple. FROM. No adenopathy. Thyroid Normal. No meningeal signs. No neck mass noted. CVS: Normal heart rate and rhythm. Heart sound normal. No murmurs noted. Pulses normal throughout. Respiratory: No respiratory distress. Painless inspiration. Breath sounds normal. No wheezes/rales/rhonchi noted. Chest nontender. No accessory muscle usage noted or decreased air movement noted. Abdomen: Soft and nontender. Bowel sounds normal in all 4 quadrants. No distention noted. No organomegaly noted. No visible injury noted. Back: No CVA tenderness. Full range of motion noted. Skin: Skin warm and dry. Normal skin color. Normal skin turgor. No rashes/lesions/lacerations noted. Extremities: No lower extremity edema. Extremities exhibit normal range of motion. Extremities nontender. Neuro: Oriented X 3. Cranial nerve exam: II-XII are grossly intact No motor deficit. No sensory deficit. Reflexes normal. Course Reevaluation(s) Reevaluation #1: Patient presented with viral-like symptoms, negative for COVID, influenza, patient is also negative for strep pharyngitis, x-ray showed no pneumonia, labs are unremarkable. Negative cardiac workup for chest pain which felt to be part of the generalized body ache. Will discharge encouraged to drink plenty of fluid, NSAIDs if needed for pain. Time: 10:03 Medications Administered Discontinued Medications Generic Name Dose Route Start Last Admin Trade Name Freq PRN Reason Stop Dose Admin Ibuprofen 600 mg 05/19/24 07:35 05/19/24 08:00 Ibuprofen 600 Mg Tablet PO 05/19/24 07:36 600 mg ONCE ONE Administration Medical Decision Making Differential Diagnosis Differential Diagnoses: The differential diagnosis associated with the presentation includes (Influenza, RSV, COVID, pneumonia, pneumothorax, pleural effusion, pulmonary embolism, ACS, electrolyte derangement, severe anemia,) Admission/Observation Consideration of admission/observation: Escalation of care including admission/observation considered Lab Data MDM Lab Attestation statement: I reviewed the patient's lab results. 05/19/24 08:28 05/19/24 08:28 Labs: Lab Results 05/19/24 05/19/24 Range/Units 07:28 08:28 WBC 6.2 (4.8-10.8) X10*3/uL RBC 4.86 (4.20-5.50) X10*6/uL Hgb 13.3 (12.0-16.0) g/dl Hct 41.7 (37.0-47.0) % MCV 85.8 (80.0-98.0) fL MCH 27.4 (27.0-33.0) pg MCHC 31.9 (31.0-35.0) g/dl RDW 13.5 (11.0-16.0) % Plt Count 249 (160-400) X10*3/uL MPV 8.7 L (9.4-12.3) fL Immature Gran % (Auto) 0.3 (0.0-0.4) % Neut % (Auto) 70.4 (45-73) % Lymph % (Auto) 21.9 (20-40) % [place] % (Auto) 4.3 (2-11) % Eos % (Auto) 2.3 (0-4) % Baso % (Auto) 0.8 (0-2) % Lymph # (Auto) 1.4 (1.2-4.9) X10*3/uL [place] # (Auto) 0.3 (0.1-1.2) X10*3/uL Eos # (Auto) 0.1 (0.0-0.4) X10*3/uL Baso # (Auto) 0.1 (0.0-0.2) X10*3/uL Abs Immat Gran (auto) 0.02 (0.00-0.03) X10*3/uL Absolute Neuts (auto) 4.4 (2.0-8.3) x10*3/uL Absolute Nucleated RBC 0.000 (0.0-0.012) X10*3/uL Nucleated RBC % (auto) 0.0 (0.0-0.2) /100WBC Sodium 139 (135-145) mmol/L Potassium 4.1 (3.3-5.1) mmol/L Chloride 107 (96-108) mmol/L Carbon Dioxide 26 (22-29) mmol/L Anion Gap 10 L (12-20) BUN 14 (9-16) mg/dL Creatinine 0.76 (0.5-1.4) mg/dL Estim Creat Clear Calc 101.9 Estimated GFR > 60 Random Glucose 96 (60-115) mg/dL Calcium 9.2 (8.4-10.2) mg/dL Total Bilirubin 0.5 (0.0-1.0) mg/dL Direct Bilirubin 0.2 (0.0-0.5) mg/dL AST 25 (5-31) U/L ALT 37 H (0-31) U/L Alkaline Phosphatase 66 (39-117) U/L Troponin I High Sens < 2.7 (<3.5-17.0) ng/L Total Protein 7.3 (6.5-8.0) g/dL Albumin 3.8 (3.5-5.0) g/dL Lipase 31 (8-78) U/L Influenza Type A (PCR) NEGATIVE (Negative) Influenza Type B (PCR) NEGATIVE (Negative) RSV RNA Qual (PCR) NEGATIVE (Negative) SARS-CoV-2 RNA (RT-PCR) NEGATIVE (Negative) S. pyogenes GrpA AUDIE Negative (Negative) Independent Interpretation I performed an independent interpretation of an: EKG (Normal sinus rhythm at 75 beats per minutes, normal intervals, no ST-T changes.) and Plain X-Ray (Chest:1. Unchanged, No radiographic signs of acute cardiopulmonary disease. 2. Calcific tendinitis of the right shoulder. ) Radiology Impression Discussion of test interpretation with radiology: I have reviewed the radiologist's reading. Discharge Plan Discharge Clinical Impression: Acute viral syndrome Patient Disposition: Home, Self-Care Instructions: Viral Syndrome (ED) Prescriptions: No Action ibuprofen 800 mg tablet 800 mg PO Q8H PRN (Reason: pain) Qty: 14 0RF prednisone 20 mg tablet 40 mg PO DAILY 5 Days Qty: 10 0RF acetaminophen [Tylenol Extra Strength] 500 mg tablet 1,000 mg PO QID PRN (Reason: fever or pain) Qty: 14 0RF oxycodone-acetaminophen [Percocet] 5-325 mg tablet 1 tab PO Q6H PRN (Reason: pain) Qty: 10 0RF cyclobenzaprine 10 mg tablet 10 mg PO Q8H Qty: 10 0RF prednisone 10 mg tablet 10 mg PO DAILY 12 Days Qty: 39 0RF Rx Instructions: Take 6 tabs for the 1st 3 days, then take 4 tabs for the next 3 days, then take 2 tabs for the next 3 days, then take 1 tab for the last 3 days. albuterol sulfate 90 mcg/actuation HFA aerosol inhaler 1 puff inhalation QID Qty: 8.5 0RF albuterol sulfate 1.25 mg/3 mL solution for nebulization 1.25 mg inhalation QID PRN (Reason: bronchospasm) Qty: 90 0RF prednisone 20 mg tablet 20 mg PO DAILY 7 Days Qty: 7 0RF benzonatate 100 mg capsule 100 mg PO BID PRN (Reason: cough) 7 Days Qty: 14 0RF cephalexin 500 mg capsule 500 mg PO BID 10 Days Qty: 20 0RF Chloraseptic Max Sore Throat 1.5-33 % spray,non-aerosol 1 spray mucous membrane Q8-12H PRN (Reason: sore throat) Qty: 118 0RF Rx Instructions: leave on area for 15 seconds then spit out Stand Alone Forms: Work/School Release Print Language: Sinhala
[2024-05-19 07:43] LABS: IDNOW Serial# 6674DD1D; Strep A Nucleic Acid Negative (Negative)
[2024-05-19] MEDS: Ibuprofen 600 MG TABLET PO (08:00)
[2024-05-19 08:26] VITALS: BP 105/65; PULSE 69; RESP 13; TEMP 36.7
[2024-05-19 08:32] LABS: MANUAL DIFF FLAG NO
[2024-05-19 08:35] LABS: Basophils Absolute Auto 0.1 X10*3/uL (0.0-0.2); Basophils Percent Auto 0.8 % (0-2); Eosinophils Absolute Auto 0.1 X10*3/uL (0.0-0.4); Eosinophils Percent Auto 2.3 % (0-4); Hematocrit 41.7 % (37.0-47.0); Hemoglobin 13.3 g/dl (12.0-16.0); Imm Gran Abs Auto 0.02 X10*3/uL (0.00-0.03); Imm Gran Pct Auto 0.3 % (0.0-0.4); Lymphocytes Absolute Auto 1.4 X10*3/uL (1.2-4.9); Lymphocytes Percent Auto 21.9 % (20-40); Mean Corpuscular HGB Conc 31.9 g/dl (31.0-35.0); Mean Corpuscular Hemoglobin 27.4 pg (27.0-33.0); Mean Corpuscular Volume 85.8 fL (80.0-98.0); Mean Platelet Volume 8.7 fL (9.4-12.3); Monocytes Absolute Auto 0.3 X10*3/uL (0.1-1.2); Monocytes Percent Auto 4.3 % (2-11); Neutrophils Absolute Auto 4.4 x10*3/uL (2.0-8.3); Neutrophils Percent Auto 70.4 % (45-73); Platelet Count 249 X10*3/uL (160-400); Red Blood Count 4.86 X10*6/uL (4.20-5.50); Red Cell Distribution Width 13.5 % (11.0-16.0); White Blood Count 6.2 X10*3/uL (4.8-10.8)
[2024-05-19 08:51] LABS: Alanine Aminotransferase 37 U/L (0-31); Albumin Level 3.8 g/dL (3.5-5.0); Alkaline Phosphatase 66 U/L (39-117); Anion Gap 10 (12-20); Aspartate Amino Transferase 25 U/L (5-31); Bilirubin Direct 0.2 mg/dL (0.0-0.5); Bilirubin Total 0.5 mg/dL (0.0-1.0); Blood Urea Nitrogen 14 mg/dL (9-16); Calcium 9.2 mg/dL (8.4-10.2); Carbon Dioxide 26 mmol/L (22-29); Chloride 107 mmol/L (96-108); Creatinine Clr Calc Pharmacy 101.9; Estimated Glomerular Filt Rate > 60; Glucose Random 96 mg/dL (60-115); Lipase 31 U/L (8-78); Potassium 4.1 mmol/L (3.3-5.1); Sodium 139 mmol/L (135-145); Total Protein 7.3 g/dL (6.5-8.0)
[2024-05-19 09:01] LABS: Troponin-I High Sensitivity < 2.7 ng/L (<3.5-17.0)
[2024-05-19 09:33] LABS: Influenza A PCR NEGATIVE (Negative); Influenza B PCR NEGATIVE (Negative); Resp Syncy Virus RNA Qual PCR NEGATIVE (Negative); SARS COV2 PCR INHOUSE NEGATIVE (Negative)
[2024-05-19 10:13] VITALS: BP 115/76; PULSE 69; RESP 20; TEMP 36.6; O2SAT 100
== END 2024-05-19 10:13 | disposition home or self-care (01) ==
PROVIDERS: Emergency Provider Emergency Medicine
DX: B34.9 Viral infection, unspecified (principal); J02.9 Acute pharyngitis, unspecified; R07.9 Chest pain, unspecified; Z03.818 Encounter for observation for suspected exposure to other biological agents ruled out; J45.909 Unspecified asthma, uncomplicated
CPT/HCPCS: 0241U; 36415; 71045; 80048; 80076; 83690; 84484; 85025; 87651; 93005; 99284

== ENCOUNTER → 2024-05-19 07:23 | Outpatient (BNV) | payer OTHER, SELFPAY | PROVIDERS: Emergency Provider Emergency Medicine; Visit Provider Internal Medicine Cardiovascular Disease | DX: R07.9 Chest pain, unspecified (principal) | CPT/HCPCS: 93010 ==

== ENCOUNTER 2025-10-14 14:58 | Emergency (ER) | payer OTHER, SELFPAY ==
--- NOTE | ~2025-10-14 | XR_ITS ---
CLINICAL HISTORY: chest pain Chest Radiographs, 2 views Comparison: CR/SR - XR CHEST 2 VIEWS - 05/19/24 08:13 EDT CR/MD/SR - XR CHEST 2 VIEWS - 05/17/23 08:14 EDT Findings: No cardiomegaly. Normal mediastinal contours. No pneumothorax. No opacity. No pleural effusion. No acute findings in the upper abdomen. No acute fracture. Impression: No acute findings. This document has been electronically signed by: Leann Smith MD on 10/14/2025 16:41:17
--- NOTE | 2025-10-14 15:00 | ECG_ITS ---
Test Reason : CHEST PAIN Blood Pressure : */* mmHG Vent. Rate : 95 BPM Atrial Rate : 95 BPM P-R Int : 128 ms QRS Dur : 78 ms QT Int : 346 ms P-R-T Axes : 46 64 34 degrees QTcB Int : 434 ms Normal sinus rhythm Normal ECG When compared with ECG of 19-May-2024 07:20, No significant change was found Referred By: Generic ED Physician Electronically Signed By: BISHNU TENORIO MD
--- NOTE | 2025-10-14 15:11 | ED_ITS ---
HPI - Chest Pain General Chief Complaint: Chest Pain Stated Complaint: chest pain SOB since this morning Time Seen by Provider: 10/14/25 17:44 Related Data Previous Rx's ?Medication ?Instructions ?Recorded acetaminophen 500 mg tablet 1,000 mg (2 x 500 mg) PO Q ID PRN 06/13/21 (Tylenol Extra Strength) fever or pain #14 tabs cyclobenzaprine 10 mg tablet 10 mg PO Q8H Muscle spasm #10 tabs 06/13/21 ibuprofen 800 mg tablet 800 mg PO Q8H PRN pain #14 t abs 06/13/21 oxycodone-acetaminophen 5 mg-325 1 tab PO Q6H PRN pain #10 tabs 06/13/21 mg tablet (Percocet) prednisone 20 mg tablet 40 mg (2 x 20 mg) PO DAILY r lalo 5 06/13/21 days #10 tabs prednisone 10 mg tablet 10 mg PO DAILY 12 days #39 t abs 08/07/21 benzonatate 100 mg capsule 100 mg PO BID PRN cough 7 d ays #14 05/17/23 caps cephalexin 500 mg capsule 500 mg PO BID 10 days #20 ca ps 10/13/23 phenol 1.5 %-glycerin 33 % mucosal 1 spray mucous memb [place] Q8-12H PRN 10/13/23 spray (Chloraseptic Max Sore sore throat #118 mL Throat) albuterol sulfate 1.25 mg/3 mL 1.25 mg (3 mL) inhalati on QID PRN 10/24/23 solution for nebulization bronchospasm #90 mL albuterol sulfate 90 mcg/actuation 1 puff inhalation Q ID #8.5 grams 10/24/23 aerosol inhaler prednisone 20 mg tablet 20 mg PO DAILY 7 days #7 tab s 10/24/23 Allergies Allergy/AdvReac Type Severity Reaction Status Date / Time Penicillins (PCN) Allergy Severe ANAPHYLAXIS Verified 10/14/25 15:13 kiwi Allergy Unknown Verified 10/14/25 15:13 latex Allergy Anaphylaxis Verified 10/14/25 15:13 seafood Allergy Unknown Verified 10/14/25 15:13 [facility] Past Medical History Medical History COVID-19 Asthma Surgical History H/O tubal ligation Social History Social History Alcohol intake: never Patient Tobacco Use Status: Never used Tobacco Advance Directives: No Advance Directives Information Provided: No Do you have a plan to hurt others: No Plan Physical Exam 2 Vital Signs: Vital Signs: Last Vital Signs Temp 98 F 10/14/25 15:12 Pulse 94 10/14/25 15:12 Resp 18 10/14/25 15:12 BP 153/94 H 10/14/25 15:12 Pulse Ox 100 10/14/25 15:12 O2 Del Method Room Air 10/14/25 15:12 BMI result Body Mass Index 29.2 Course Course Course Narrative: This is a Rapid Medical Examination (RME) performed by Ashok Winn PA-C in triage. Full HPI, ROS, assessment and treatment plan per primary provider in the Main ED. Hx: 39 yo F hx asthma here for eval of intermittent chest pain x this morning. reports multiple episodes of vomiting after cp started. cp radiates from right to left. no hx similar. will stop for no longer than 5 minutes. no cardiac hx. PE/vitals: uncomfortable appearing Plan: labs, ekg, cxr Reevaluation(s) Reevaluation #1: Patient left the emergency department before myself or any of the other clinicians could review or explain physical exam findings, test results, need or lack there of for additional testing, treatment options, or a treatment plan. Medical Decision Making Lab Data 10/14/25 15:30 10/14/25 15:30 Labs: Lab Results 10/14/25 Range/Units 15:30 WBC 12.5 H (4.8-10.8) X10*3/uL RBC 5.15 (4.20-5.50) X10*6/uL Hgb 13.8 (12.0-16.0) g/dl Hct 44.0 (37.0-47.0) % MCV 85.4 (80.0-98.0) fL MCH 26.8 L (27.0-33.0) pg MCHC 31.4 (31.0-35.0) g/dl RDW 13.3 (11.0-16.0) % Plt Count 354 D (160-400) X10*3/uL MPV 8.9 L (9.4-12.3) fL Immature Gran % (Auto) 0.3 (0.0-0.4) % Neut % (Auto) 89.7 H (45-73) % Lymph % (Auto) 7.0 L (20-40) % [place] % (Auto) 2.4 (2-11) % Eos % (Auto) 0.2 (0-4) % Baso % (Auto) 0.4 (0-2) % Lymph # (Auto) 0.9 L (1.2-4.9) X10*3/uL [place] # (Auto) 0.3 (0.1-1.2) X10*3/uL Eos # (Auto) 0.0 (0.0-0.4) X10*3/uL Baso # (Auto) 0.1 (0.0-0.2) X10*3/uL Abs Immat Gran (auto) 0.04 H (0.00-0.03) X10*3/uL Absolute Neuts (auto) 11.2 H (2.0-8.3) x10*3/uL Absolute Nucleated RBC 0.000 (0.0-0.012) X10*3/uL Nucleated RBC % (auto) 0.0 (0.0-0.2) /100WBC Sodium 139 (135-145) mmol/L Potassium 3.8 (3.3-5.1) mmol/L Chloride 107 (96-108) mmol/L Carbon Dioxide 22 (22-29) mmol/L Anion Gap 14 (12-20) BUN 11 (9-16) mg/dL Creatinine 0.70 (0.5-1.4) mg/dL Estim Creat Clear Calc 106.3 Estimated GFR > 60 Random Glucose 115 (60-115) mg/dL Calcium 9.9 D (8.4-10.2) mg/dL Magnesium 2.0 (1.6-2.6) mg/dL Total Bilirubin 0.6 (0.0-1.0) mg/dL AST 33 H (5-31) U/L ALT 46 H (0-31) U/L Alkaline Phosphatase 79 (39-117) U/L Troponin I High Sens < 2.7 (<3.5-17.0) ng/L Total Protein 8.1 H (6.5-8.0) g/dL Albumin 4.6 (3.5-5.0) g/dL Lipase 18 (8-78) U/L Influenza Type A (PCR) NEGATIVE (Negative) Influenza Type B (PCR) NEGATIVE (Negative) RSV RNA Qual (PCR) NEGATIVE (Negative) SARS-CoV-2 RNA (RT-PCR) NEGATIVE (Negative) Discharge Plan Discharge Clinical Impression: Chest pain Patient Disposition: Left W/O Completing Treatment Prescriptions: No Action ibuprofen 800 mg tablet 800 mg PO Q8H PRN (Reason: pain) Qty: 14 0RF prednisone 20 mg tablet 40 mg PO DAILY 5 Days Qty: 10 0RF acetaminophen [Tylenol Extra Strength] 500 mg tablet 1,000 mg PO QID PRN (Reason: fever or pain) Qty: 14 0RF oxycodone-acetaminophen [Percocet] 5-325 mg tablet 1 tab PO Q6H PRN (Reason: pain) Qty: 10 0RF cyclobenzaprine 10 mg tablet 10 mg PO Q8H Qty: 10 0RF prednisone 10 mg tablet 10 mg PO DAILY 12 Days Qty: 39 0RF Rx Instructions: Take 6 tabs for the 1st 3 days, then take 4 tabs for the next 3 days, then take 2 tabs for the next 3 days, then take 1 tab for the last 3 days. albuterol sulfate 90 mcg/actuation HFA aerosol inhaler 1 puff inhalation QID Qty: 8.5 0RF albuterol sulfate 1.25 mg/3 mL solution for nebulization 1.25 mg inhalation QID PRN (Reason: bronchospasm) Qty: 90 0RF prednisone 20 mg tablet 20 mg PO DAILY 7 Days Qty: 7 0RF benzonatate 100 mg capsule 100 mg PO BID PRN (Reason: cough) 7 Days Qty: 14 0RF cephalexin 500 mg capsule 500 mg PO BID 10 Days Qty: 20 0RF Chloraseptic Max Sore Throat 1.5-33 % spray,non-aerosol 1 spray mucous membrane Q8-12H PRN (Reason: sore throat) Qty: 118 0RF Rx Instructions: leave on area for 15 seconds then spit out Discharge Date/Time: 10/14/25 17:54
[2025-10-14 15:12] VITALS: BP 153/94; PULSE 94; RESP 18; TEMP 36.6; O2SAT 100; BMI 29.2
[2025-10-14 15:46] LABS: MANUAL DIFF FLAG NO
[2025-10-14 15:51] LABS: Hematocrit 44.0 % (37.0-47.0); Hemoglobin 13.8 g/dl (12.0-16.0); Imm Gran Abs Auto 0.04 X10*3/uL (0.00-0.03); Imm Gran Pct Auto 0.3 % (0.0-0.4); Lymphocytes Absolute Auto 0.9 X10*3/uL (1.2-4.9); Mean Corpuscular HGB Conc 31.4 g/dl (31.0-35.0); Mean Corpuscular Hemoglobin 26.8 pg (27.0-33.0); Mean Corpuscular Volume 85.4 fL (80.0-98.0); NRBC Abs Auto 0.000 X10*3/uL (0.0-0.012); NRBC Pct Auto 0.0 /100WBC (0.0-0.2); Platelet Count 354 X10*3/uL (160-400); Red Blood Count 5.15 X10*6/uL (4.20-5.50); White Blood Count 12.5 X10*3/uL (4.8-10.8)
[2025-10-14 16:06] LABS: Alanine Aminotransferase 46 U/L (0-31); Albumin Level 4.6 g/dL (3.5-5.0); Alkaline Phosphatase 79 U/L (39-117); Anion Gap 14 (12-20); Aspartate Amino Transferase 33 U/L (5-31); Blood Urea Nitrogen 11 mg/dL (9-16); Calcium 9.9 mg/dL (8.4-10.2); Carbon Dioxide 22 mmol/L (22-29); Chloride 107 mmol/L (96-108); Creatinine Clr Calc Pharmacy 106.3; Estimated Glomerular Filt Rate > 60; Lipase 18 U/L (8-78); Magnesium 2.0 mg/dL (1.6-2.6); Potassium 3.8 mmol/L (3.3-5.1); Sodium 139 mmol/L (135-145); Total Protein 8.1 g/dL (6.5-8.0)
[2025-10-14 16:13] LABS: Troponin-I High Sensitivity < 2.7 ng/L (<3.5-17.0)
[2025-10-14 16:29] LABS: Resp Syncy Virus RNA Qual PCR NEGATIVE (Negative); SARS COV2 PCR INHOUSE NEGATIVE (Negative)
--- OUTSIDE RECORDS SUMMARY | 2025-10-14 17:51 | XMS_ITS ---
Author Name [facility] Organization Unknown Care Team Organization Name Specialty Phone Email Start Date End Da te [facility] 03/29/20232023
--- OUTSIDE RECORDS SUMMARY | 2025-10-14 17:51 | XMS_ITS | Patient Health Record ---
Author Organization [facility] [address] Address [address] [place] [address] Care Team Providers Care Parts Cleaner Name Role Phone VANESSA CONNER Unavailable [phone] Allergies Allergen (clinical drug ingredient) Drug/Non Drug Allergy documented on EMR Reaction Allergy Type Onset Date Status Lobster Lobster (uncoded) hives Allergy Ac tive Blueberry Flavor hives Drug Allergy Active Fish Flavor hives Drug Allergy Activ e Penicillin hives Drug Allergy Active Tree Nuts hives Allergy Active Reason For Referral No Information Medications Medication SIG (Take, Route, Frequency, Duration) Notes Start Date End Date Status Albuterol Sulfate HFA 108 (90 Base) MCG/ACT Aerosol Solution 1 puff as needed Inhalation every 4 hrs; Duration: 30 days 01/17/2023 Active Immunizations Vaccine Route Administration Date Status Comme nts Pfizer Covid-19 Vaccine Unknown 05/29/2021 Administered Pfizer Covid-19 Vaccine Unknown 06/19/2021 Administered Tdap Unknown 01/29/2022 Administered Social History Tobacco Use: Social History Observation Description Date Details (start date - stop date) Never Smoker NA - NA Social History Tobacco Use: Social Info Question Answer Notes Tobacco Use/Smoking Are you a nonsmoker Additional Details Category Social Info Options Details Drugs/Alcohol: Do you smoke marijuana? On ce a year Do you drink alcohol? Socially Problems Problem Type SNOMED Code ICD Code Onset Dates Problem Status W/U Status Risk Notes Problem Obesity due to excess calories (958670462) Other obesity due to excess calories (E66.09) Active confirmed Problem Acquired hypothyroidism (313917323) Acquired hypothyroidism (E03.9) Active confirmed Problem Vitamin D deficiency (68175940) Vitamin D deficiency (E55.9) Active confirmed Problem Exposure to tuberculosis (3755044802404) Exposure to TB (Z20.1) Active confirmed Problem Mild major depression, single episode (91679065) Current mild episode of major depressive disorder without prior episode (F32.0) Active confirmed Problem Body mass index 30+ - obesity (345033205) Body mass index [BMI] 30.0-30.9, adult (Z68.30) Active confirmed Problem Mixed anxiety and depressive disorder (877648154) Depression with anxiety (F41.8) Active confirmed Problem Chronic obstructive asthma co-occurrent with acute exacerbation of asthma (disorder) (7390587935810129 2) Chronic obstructive asthma (J44.9) Active confirmed Plan Of Treatment Pending Test Test Name Order Date Thyroid Peroxidase (TPO) Ab 01/17/2023 t-Transglutaminase (tTG) IgA 01/17/2023 25OH VITAMIN D 01/17/2023 CBC (COMPLETE BLOOD COUNT) WITH DIFF COMPREHENSIVE METABOLIC PANEL 01/17/2023 HEMOGLOBIN A1C 01/17/2023 LIPID PANEL 01/17/2023 T4, TOTAL 01/17/2023 TSH 01/17/2023 URINALYSIS W/REFLEX CULTURE 01/17/2023 Thyroglobulin Antibody 01/17/2023 QUANTIFERON TB GOLD PLUS 01/25/2023 Insurance Providers Payer Name Payer Address Payer Phone Subscriber Number Group Number Insured Name Patient Relationship to Insured Coverage Start Date Coverage End Date [facility] [address] [place] [address] [id number] ANDI GONZALEZ Self - patient is the insured 2 Medical (General) History Medical History History ICD Code Asthma Headaches Seasonal Allergies Anxiety Surgical History Surgery Date(Month/Year) tubiligation 09/17/2019
== END 2025-10-14 17:54 | disposition left against medical advice (07) ==
LOC: HO.ED 17:49
PROVIDERS: Physician Assistant Medical; Emergency Provider Emergency Medicine
DX: R07.89 Other chest pain (principal); R06.02 Shortness of breath; Z03.818 Encounter for observation for suspected exposure to other biological agents ruled out
CPT/HCPCS: 36415; 71046; 80053; 83690; 83735; 84484; 85025; 87637; 93005; 99283

== ENCOUNTER → 2025-10-14 15:00 | Outpatient (BNV) | payer OTHER, SELFPAY | PROVIDERS: Emergency Provider Emergency Medicine; Visit Provider Internal Medicine Cardiovascular Disease | DX: R07.9 Chest pain, unspecified (principal) | CPT/HCPCS: 93010 ==

== ENCOUNTER → 2025-10-14 15:13 | Outpatient (BNV) | payer OTHER, SELFPAY | PROVIDERS: Visit Provider Radiology Diagnostic Radiology | DX: R07.9 Chest pain, unspecified (principal) | CPT/HCPCS: 71046 ==